=== PATIENT | female | born 1960 | race Caucasian/White ===

== ENCOUNTER → 2024-02-23 09:15 | Outpatient (REF) | payer OTHER, SELFPAY | LOC: RAD 09:15 | PROVIDERS: ATTENDING PHYSICIAN Specialist; FAMILY PHYSICIAN Emergency Medicine | DX: N20.0 Calculus of kidney (principal) | CPT/HCPCS: 74018 ==

== ENCOUNTER 2024-02-26 03:38 | Emergency (ER) | payer OTHER, SELFPAY ==
[2024-02-26 03:41] VITALS: BP 133/83
--- NOTE | 2024-02-26 04:04 | ED.GENMED ---
History of Present Illness
General
Chief Complaint: Flank Pain
Source: patient
Time Seen by Provider: 02/26/24 03:58
History of Present Illness
History of Present Illness:
63-year-old female presents to the emergency room complaining of right flank pain and nausea. Patient has a known 7 mm stone in the right ureter. Patient has a procedure scheduled in 2 days to address this. Dr. Gotti is her urologist. She was
told by Dr. oGtti to come to the emergency room if the pain became more severe. She has been taking only Tylenol for pain. She denies any fever. She is nauseous but has not vomited.
Past History
Past History
ED Past Medical History: Hypercholesterolemia, Psychiatric (depr) and Other (kidney stones)
ED Past Surgical History: Gynecological and Urological
Social History
Tobacco: Non-smoker
Alcohol: None
Drug: None
Personal:
Living: with family
Employment: Not employed
Family History
Family History: Other (Noncontributory)
Phy Exam
Physical Exam
Physical Exam:
General: Awake, Alert, Oriented X3. No acute distress.
Vitals: unremarkable
Head: Atraumatic
Eyes: Pupils equal, EOMI
Throat: Airway intact, no exudates
Neck: Trachea midline
Lungs: Clear and equal b/l
Heart: Regular rate, no murmurs
Abd: Soft, Nontender, No pulsatile mass
Back: Right CVA tenderness to percussion
Neuro: Nonfocal
Skin: Warm, dry, no rash
Extremities: pulses equal b/l, no edema
Course
Orders/Labs/Results
Orders:
Orders
02/26/24 04:02
0.9% Sodium Chloride 500 ml [Nss] 500 ml IV BOLUS
HYDROmorphone [Dilaudid] 0.5 mg IV NOW STA
Ondansetron Injectable [Zofran] 4 mg IV NOW STA
02/26/24 04:18
Basic Metabolic Panel Urgent
Complete Blood Count/With Diff Urgent
02/26/24 05:49
Urinalysis Reflex To Culture Urgent
Date Specimen was Collected: 02/26/24
Time Specimen was Collected: 05:47
Abnormal Lab Results
02/26/24
04:18
RBC 3.88 L 10^6/uL
(4.20-5.40)
Hgb 11.9 L g/dL
(12.0-16.0)
Hct 34.7 L %
(37.0-47.0)
Absolute Lymphs (auto) 1.1 L 10^3/uL
(1.2-3.4)
Absolute Monos (auto) 0.9 H 10^3/uL
(0.1-0.6)
Lymphocytes % 13.5 L %
(20.5-51.1)
Monocytes % 11.1 H %
(1.7-9.3)
Carbon Dioxide 21 L mmol/L
(22-30)
BUN 29 H mg/dl
(7-17)
Creatinine 1.1 H mg/dL
(0.6-1.0)
Glucose 111 H mg/dl
(70-99)
02/26/24 04:18
02/26/24 04:18
Vital Signs
Initial and Last Documented VS:
Initial Vital Signs
Temp Pulse Resp BP Pulse Ox
97.2 F 79 20 133/83 98
02/26/24 03:41 02/26/24 03:41 02/26/24 03:41 02/26/24 03:41 02/26/24 03:41
Last Documented Vital Signs
Temp Pulse Resp BP Pulse Ox
97.2 F 74 16 119/71 98
02/26/24 03:41 02/26/24 04:24 08/04/24 04:24 02/26/24 04:24 02/26/24 04:24
MDM/Problems Addressed
Differential Diagnosis Includes:
Renal colic, infected stone, renal failure
MDM/Problems Addressed:
Patient's labs show a creatinine of 1.1. She is afebrile. White count is normal. Patient feels much better after IV Dilaudid. Patient has not been using NSAIDs which I believe will be safe for her to use. Also will send a prescription for
oxycodone. There is no indication for emergent intervention. Patient can be discharged home and have her procedure on Tuesday.
*Pulse Oximetry
Patient hypoxic: no
*Critical Care Note
Total Time (30-74mins, 75-104mins- exclusive of procedures): Not Applicable
ED Attending Note
-
Portions of this chart may have been created with voice recognition software.� Occasional wrong word or��sound alike� substitutions may have occurred due to the inherent limitations of voice recognition software.
Discharge Plan
Departure
Patient Disposition: Home (Routine Discharge)
Date of Disposition: 02/26/24
Time of Disposition: 05:37
Patient with high blood pressure during this ER visit?: No
Condition: Good
Discharge Problem:
Kidney stone
Instructions: Kidney Stones (DC), Narcotic Pain Medication
Prescriptions:
New
oxycodone 5 mg tablet
5 mg PO Q6H PRN (Reason: Pain) Qty: 12 0RF
ondansetron 4 mg tablet,disintegrating
4 mg PO TID PRN (Reason: nausea and vomiting) Qty: 20 0RF
No Action
lamotrigine 100 MG tablet
100 mg PO DAILY
ezetimibe-simvastatin 1 TABLET tablet
40 tab PO QPM
ibandronate [Boniva] 150 MG tablet
150 mg PO MONTHLY
cholecalciferol (vitamin D3) 2,000 UNITS tablet
2,000 units PO HS
hrufxnl-ucqihbmqmmolt-yewnhlou 1 TABLET tablet
2 tab PO DAILYPRN PRN (Reason: tension headache)
escitalopram oxalate 10 MG tablet
10 mg PO DAILY
Azo Bladder Control Capsule
1 tab PO DAILY PRN (Reason: pain)
ibuprofen 400 MG tablet
400 mg PO Q6HPRN PRN (Reason: pain)
Referrals:
Carmita Mcmanus MD [Family Provider] -
Alexander Gotti MD [Active] -
Interventions
Interventions:
*Risk Screen - Suicide Last Done: 02/26/24 03:41
*General Assessment Last Done: 02/26/24 03:41
*Neglect/Abuse Screening Last Done: 02/26/24 03:41
ED- Fall Risk Assessment Last Done: 02/26/24 03:41
*ED COVID-19 Vaccine History Last Done: 02/26/24 03:41
*Nursing Disposition Last Done: 02/26/24 05:56
UD-Cefuto-Bevaianrye Assessment Last Done: 02/26/24 04:24
ED-Female Genitourinary Assessment Last Done: 02/26/24 04:24
Discharge Date and Time
Discharge Date/Time: 02/26/24 05:56
Print Language: HAITIAN
[2024-02-26] MEDS: NSS 500 IV (04:15)
[2024-02-26] MEDS: ZOFRAN 4 MG IV (04:15)
[2024-02-26] MEDS: DILAUDID 0.5 MG IV (04:16)
[2024-02-26 04:24] VITALS: BP 119/71
[2024-02-26 04:31] LABS: % Basophils 0.7 % (0-2); % Eosinophils 4.3 % (0-6); % Immature Granulocytes 0.4 % (0-0.5); % Lymphocytes 13.5 % (20.5-51.1); % Monocytes 11.1 % (1.7-9.3); Absolute Basophils 0.1 10^3/uL (0-0.2); Absolute Eosinophils 0.4 10^3/uL (0-0.7); Absolute Lymphocytes 1.1 10^3/uL (1.2-3.4); Absolute Monocytes 0.9 10^3/uL (0.1-0.6); Absolute Neutrophils 5.8 10^3/uL (1.4-6.5); Hematocrit 34.7 % (37.0-47.0); Hemoglobin 11.9 g/dL (12.0-16.0); Mean Corp Hgb Conc. 34.3 g/dL (33.0-37.0); Mean Corpuscular Hgb 30.7 pg (27.0-31.0); Mean Corpuscular Volume 89.4 fL (81.0-99.0); Mean Platelet Volume 8.9 fL (7.4-10.4); Nucleated Red Blood Cells % 0 %; Platelet Count 220 10^3/uL (130-400); Red Blood Cell Count 3.88 10^6/uL (4.20-5.40); Red Cell Dist. Width 14.3 % (11.5-14.5); White Blood Cell Count 8.3 10^3/uL (4.8-10.8)
[2024-02-26 04:48] LABS: Blood Urea Nitrogen 29 mg/dl (7-17); Calcium 9.6 mg/dl (8.4-10.2); Carbon Dioxide 21 mmol/L (22-30); Chloride 106 mmol/L (98-107); Glucose 111 mg/dl (70-99); Potassium 4.8 mmol/L (3.5-5.1); Sodium 137 mmol/L (135-145); eGFR 55.76
[2024-02-26 06:02] LABS: Urine Albumin Negative (Neg - Trace); Urine Bilirubin Negative (Negative); Urine Character Clear (Clear); Urine Color Straw; Urine Glucose Negative (Negative); Urine Ketone Negative (Negative); Urine Leukocyte 1+ (Negative); Urine Nitrite Negative (Negative); Urine Occult Blood 3+ (Negative); Urine Urobilinogen Negative (Neg - 1+)
[2024-02-26 06:19] LABS: Urine Bacteria Few (Negative); Urine White Cell 16-20 /HPF (0-5)
== END 2024-02-26 05:56 | disposition home or self-care (01) ==
LOC: EMR 03:38
PROVIDERS: EMERGENCY PHYSICIAN Emergency Medicine; FAMILY PHYSICIAN Emergency Medicine
DX: N20.2 Calculus of kidney with calculus of ureter (principal); E78.00 Pure hypercholesterolemia, unspecified; Z87.442 Personal history of urinary calculi
CPT/HCPCS: 99283; 96374; 96375; 80048; 81003; 81015; 85025; 87086

== ENCOUNTER 2024-02-28 06:26 | Day surgery (SDC) | payer OTHER, SELFPAY ==
[2024-02-24 14:13] VITALS: BMI 23.0
[2024-02-24 14:42] LABS: Hematocrit 41.1 % (37.0-47.0); Hemoglobin 13.5 g/dL (12.0-16.0); Mean Corp Hgb Conc. 32.8 g/dL (33.0-37.0); Mean Corpuscular Volume 94.5 fL (81.0-99.0); Mean Platelet Volume 9.5 fL (7.4-10.4); Platelet Count 251 10^3/uL (130-400); Red Blood Cell Count 4.35 10^6/uL (4.20-5.40); Red Cell Dist. Width 14.7 % (11.5-14.5)
[2024-02-24 15:09] LABS: Blood Urea Nitrogen 30 mg/dl (7-17); Calcium 10.4 mg/dl (8.4-10.2); Carbon Dioxide 26 mmol/L (22-30); Chloride 100 mmol/L (98-107); Estimated Creatinine Clearance 35 ml/min; Glucose 96 mg/dl (70-99); Potassium 5.6 mmol/L (3.5-5.1); Sodium 135 mmol/L (135-145); eGFR 45.63
--- NOTE | 2024-02-24 16:05 | PTCARENOTE ---
Abnormal Creatinine and Potassium 02/24/24. Pauly at Dr. Gotti's office aware.
[2024-02-28] VITALS (8 sets, daily range): BP systolic 127–150; BP diastolic 75–94; BMI 23.0
[2024-02-28] MEDS: NORMOSOL-R 1000 IV (08:56)
[2024-02-28] MEDS: Pyridium 200 MG PO (11:09)
[2024-03-02 05:30] LABS: Stone Analysis Mass 16 mg
== END 2024-02-28 12:00 | disposition home or self-care (01) ==
LOC: SDS 06:26
PROVIDERS: ATTENDING PHYSICIAN Specialist; FAMILY PHYSICIAN Emergency Medicine
DX: N20.1 Calculus of ureter (principal)
CPT/HCPCS: 52356; 36415; 74018; 76000; 80048; 82365; 85027; 93005; A4300; C1894; C2617; J1580

== ENCOUNTER 2024-03-04 18:59 | Emergency (ER) | payer OTHER, SELFPAY ==
[2024-03-04 19:01] VITALS: BP 117/74
--- NOTE | 2024-03-04 21:01 | ED.SKININJ ---
HPI-Injury
General
Chief Complaint: Bite
Source: patient
Exam Limitations: none
Time Seen by Provider: 03/04/24 20:49
Nursing documentation reviewed up to this point in time: agreed with
History of Present Illness-Injury
Is this injury a work related problem?: No
Is pt an associate of [facility]?: No
Initial Injury comments:
Accidentally bit by friends dog. Dog isUTD with rabies. Has puncture and abrasions to posterior left ankle. Injury occurred this afternoon.
Past History
Past History
ED Past Medical History: Hypercholesterolemia, Psychiatric (depr) and Other (kidney stones)
ED Past Surgical History: Gynecological and Urological
Social History
Tobacco: Non-smoker
Alcohol: None
Drug: None
Personal:
Living: with family
Employment: Not employed
Family History
Family History: Other (Noncontributory)
Review of Systems
Review of Systems
Allergies reviewed?: Yes
All Other Systems: ROS reviewed and negative except as documented in HPI and ROS
Constitutional: Reports no symptoms
Musculoskeletal: Reports no symptoms
Skin: Reports other (dog bite left posterior ankle)
Neurological: Reports no symptoms
Psychiatric: Reports no symptoms
Skin Exam
Bite
Left Posterior Ankle:
Type: animal
Skin has: puncture wounds
Surrounding area around bite has: no evidence of erythema and ecchymotic areas
Distal skin color and temperature: normal-warm & good color
Normal distal neurovascular exam: Yes
Phy Exam
General Physical Exam
General Presentation: well appearing and no apparent distress
General age: appears stated age
General Skin: warm and dry
General Habitus: normal
Musculoskeletal Exam
Musculoskeletal Exam: full ROM, neuro vasc intact and other (achilles intact.)
Skin Exam
Skin Exam: normal color, warm/dry and no rash
Psychiatric Exam
Psychiatric Exam: normal mood/affect
Course
Orders/Labs/Results
Orders:
Orders
03/04/24 20:56
Tetanus/Diphth/Acelpertussis [Adacel] 0.5 ml IM .ONCE ONE
03/04/24 20:57
Amoxicillin 875 mg/Clav 125 mg [Augmentin 875 mg/125 mg] 1 tablet PO NOW STA
Vital Signs
Initial and Last Documented VS:
Initial Vital Signs
Temp Pulse Resp BP Pulse Ox
98.1 F 88 18 117/74 96
03/04/24 19:01 03/04/24 19:01 03/04/24 19:01 03/04/24 19:01 03/04/24 19:01
Last Documented Vital Signs
Temp Pulse Resp BP Pulse Ox
98.1 F 88 18 117/74 96
03/04/24 19:01 03/04/24 19:01 03/04/24 19:01 03/04/24 19:01 03/04/24 19:01
*Critical Care Note
Total Time (30-74mins, 75-104mins- exclusive of procedures): Not Applicable
Update Note
Update Note:
Patient reports rash with PCN while . Has had Augmentin since, no rash
ED Attending Note
-
Portions of this chart may have been created with voice recognition software.� Occasional wrong word or��sound alike� substitutions may have occurred due to the inherent limitations of voice recognition software.
Discharge Plan
Departure
Patient Disposition: Home (Routine Discharge)
Date of Disposition: 03/04/24
Time of Disposition: 20:58
Patient with high blood pressure during this ER visit?: No
Condition: Good
Covid-19: Not Applicable
Discharge Problem:
Dog bite of left ankle
Instructions: Animal Bites (DC), Wound Care (DC)
Prescriptions:
New
amoxicillin-pot clavulanate 875-125 mg tablet
1 tab PO BID Qty: 10 0RF
No Action
lamotrigine 100 MG tablet
100 mg PO DAILY
ezetimibe-simvastatin 1 TABLET tablet
40 tab PO QPM
ibandronate [Boniva] 150 MG tablet
150 mg PO MONTHLY
cholecalciferol (vitamin D3) 2,000 UNITS tablet
2,000 units PO HS
zxqpqmc-gjcmmmxujtbkw-ydrojzfx 1 TABLET tablet
2 tab PO DAILYPRN PRN (Reason: tension headache)
escitalopram oxalate 10 MG tablet
10 mg PO DAILY
Azo Bladder Control Capsule
1 tab PO DAILY PRN (Reason: pain)
ibuprofen 400 MG tablet
400 mg PO Q6HPRN PRN (Reason: pain)
tamsulosin [Flomax] 0.4 mg Capsule
0.4 mg PO DAILY
oxycodone 5 mg tablet
5 mg PO Q6H PRN (Reason: Pain) Qty: 12 0RF
ondansetron 4 mg tablet,disintegrating
4 mg PO TID PRN (Reason: nausea and vomiting) Qty: 20 0RF
Activity Restrictions/Additional Instructions:
Follow up with your family doctor in 2 days for a wound check. Return to the emergency department immediately for fever/chills, increasing pain/redness/swelling to your leg, or for any further concerns.
Interventions
Interventions:
*Risk Screen - Suicide Last Done: 03/04/24 19:01
*General Assessment Last Done: 03/04/24 19:01
*Neglect/Abuse Screening Last Done: 03/04/24 19:01
ED- Fall Risk Assessment Last Done: 03/04/24 21:12
*ED COVID-19 Vaccine History Last Done: 03/04/24 20:55
*Nursing Disposition Last Done: 03/04/24 21:13
ED-Skin Assessment Last Done: 03/04/24 21:12
Discharge Date and Time
Discharge Date/Time: 03/04/24 21:14
Print Language: ARABIC
[2024-03-04] MEDS: AUGMENTIN 875 MG/125 MG 1 TABLET PO (21:05)
[2024-03-04] MEDS: ADACEL 0.5 ML IM (21:06)
== END 2024-03-04 21:14 | disposition home or self-care (01) ==
LOC: EMR 18:59
PROVIDERS: EMERGENCY PHYSICIAN Emergency Medicine; FAMILY PHYSICIAN Emergency Medicine
DX: S91.052A Open bite, left ankle, initial encounter (principal); S90.512A Abrasion, left ankle, initial encounter; W54.0XXA Bitten by dog, initial encounter; Z23 Encounter for immunization; E78.00 Pure hypercholesterolemia, unspecified; F41.9 Anxiety disorder, unspecified; F32.A Depression, unspecified; K21.9 Gastro-esophageal reflux disease without esophagitis; M19.90 Unspecified osteoarthritis, unspecified site; Z87.442 Personal history of urinary calculi; Z87.01 Personal history of pneumonia (recurrent); Z86.16 Personal history of COVID-19; Z85.828 Personal history of other malignant neoplasm of skin; Z88.5 Allergy status to narcotic agent; Z88.0 Allergy status to penicillin
CPT/HCPCS: 99283; 90471; 90715

== ENCOUNTER → 2024-04-09 12:11 | Outpatient (REF) | payer OTHER, SELFPAY | LOC: WDC 12:11 | PROVIDERS: ATTENDING PHYSICIAN Obstetrics & Gynecology; FAMILY PHYSICIAN Emergency Medicine | DX: Z12.31 Encounter for screening mammogram for malignant neoplasm of breast (principal) | CPT/HCPCS: 77063; 77067 ==

== ENCOUNTER 2024-05-11 22:07 | Emergency (ER) | payer OTHER, SELFPAY ==
[2024-05-11 22:15] VITALS: BP 135/87
[2024-05-11 22:35] LABS: % Basophils 0.7 % (0-2); % Eosinophils 2.6 % (0-6); % Immature Granulocytes 0.2 % (0-0.5); % Lymphocytes 14.9 % (20.5-51.1); % Monocytes 8.9 % (1.7-9.3); % Neutrophils 72.7 % (42.2-75.2); Absolute Eosinophils 0.2 10^3/uL (0-0.7); Absolute Lymphocytes 0.9 10^3/uL (1.2-3.4); Absolute Monocytes 0.5 10^3/uL (0.1-0.6); Absolute Neutrophils 4.4 10^3/uL (1.4-6.5); Hematocrit 37.8 % (37.0-47.0); Hemoglobin 12.9 g/dL (12.0-16.0); Mean Corp Hgb Conc. 34.1 g/dL (33.0-37.0); Mean Corpuscular Hgb 30.5 pg (27.0-31.0); Mean Corpuscular Volume 89.4 fL (81.0-99.0); Mean Platelet Volume 9.3 fL (7.4-10.4); Nucleated Red Blood Cells % 0 %; Platelet Count 193 10^3/uL (130-400); Red Blood Cell Count 4.23 10^6/uL (4.20-5.40); Red Cell Dist. Width 12.5 % (11.5-14.5)
[2024-05-11 22:49] LABS: ALT (SGPT) 40 U/L (0-35); AST (SGOT) 120 U/L (14-36); Albumin 4.6 g/dl (3.5-5.0); Alkaline Phosphatase 98 U/L (38-126); Blood Urea Nitrogen 16 mg/dl (7-17); Carbon Dioxide 28 mmol/L (22-30); Chloride 102 mmol/L (98-107); Glucose 109 mg/dl (70-99); Lipase 65 U/L (23-300); Sodium 140 mmol/L (135-145); Total Bilirubin 0.2 mg/dl (0.2-1.3); eGFR > 60.00
[2024-05-11 23:00] LABS: Troponin I < 0.012 ng/ml
[2024-05-11 23:42] VITALS: BMI 20.4
[2024-05-11 23:46] VITALS: BP 147/84
--- NOTE | 2024-05-12 01:17 | ED.GENMED ---
History of Present Illness
General
Chief Complaint: Cardiac Symptoms
Source: patient and spouse
Exam Limitations: none
Time Seen by Provider: 05/12/24 00:27
History of Present Illness
History of Present Illness:
63-year-old female with a history of hyperlipidemia presents just not feeling well. States she has had some constipation and just not feeling well over the last week. Today since around 3 has developed pain in bilateral shoulders down her elbows.
No chest pain. No upper back pain. States she has had little bit of tightness in her lower back. Admits that she was just concerned this could be a heart related symptom. Patient denies fevers. No nausea. No vomiting. No real abdominal pain.
No melena. No hematochezia. No fevers.
Past History
Past History
ED Past Medical History: Hypercholesterolemia, Psychiatric (depr) and Other (kidney stones)
ED Past Surgical History: Gynecological and Urological
Social History
Tobacco: Non-smoker
Alcohol: None
Drug: None
Personal:
Living: with family
Employment: Not employed
Family History
Family History: Other (Noncontributory)
Phy Exam
Physical Exam
Physical Exam:
CONSTITUTIONAL Patient alert and oriented to person, place and time. Well-appearing. Vital signs reviewed.
HEAD atraumatic, normocephalic.
EYES eyelids normal to inspection, Extraocular muscles intact, Conjunctiva normal, Sclera normal.
NECK normal range of motion, Trachea midline, no jugular venous distention.
RESPIRATORY CHEST No respiratory distress noted, Chest expansion equal, Bilateral breath sounds clear.
CARDIOVASCULAR regular rate and rhythm, Heart sounds normal.
ABDOMEN abdomen nontender, Bowel sounds normal. No distention.
BACK normal inspection, no obvious deformities, no obvious trapezius tenderness
UPPER EXTREMITY range of motion normal, Motor strength normal, no cyanosis, no edema.
LOWER EXTREMITY range of motion normal, Motor strength normal, no cyanosis, no edema.
NEURO Speech normal, No focal motor deficits, Procious coma scale 15, Memory normal, Cranial Nerves intact to screening exam.
SKIN skin warm, dry, and normal in color.
Course
Orders/Labs/Results
Orders:
Orders
05/11/24 22:08
EKG [Electrocardiogram (*1)] Urgent
Reason for Study: Fatigue / Weakness
05/11/24 22:09
EKG- Treatment ONCE
05/11/24 22:27
CBC/With Diff [Complete Blood Count/With Diff] Urgent
CMP [Comprehensive Metabolic Panel] Urgent
Lipase Urgent
Troponin I Urgent
05/12/24 00:37
Abdomen Xray - 1 View [CR Abdomen - 1 View] Urgent
Comment:
Reason For Exam: abd pain
CR Chest - 2 Views Urgent
Comment:
Reason For Exam: cp
Abnormal Lab Results
05/11/24
22:27
Absolute Lymphs (auto) 0.9 L 10^3/uL
(1.2-3.4)
Lymphocytes % 14.9 L %
(20.5-51.1)
Glucose 109 H mg/dl
(70-99)
AST 120 H U/L
(14-36)
ALT 40 H U/L
(0-35)
05/11/24 22:27
05/11/24 22:27
Vital Signs
Initial and Last Documented VS:
Initial Vital Signs
Temp Pulse Resp BP Pulse Ox
99.2 F 79 15 135/87 99
05/11/24 22:15 05/11/24 22:15 05/11/24 22:15 05/11/24 22:15 05/11/24 22:15
Last Documented Vital Signs
Temp Pulse Resp BP Pulse Ox
99.2 F 77 16 147/84 98
05/11/24 22:15 05/11/24 23:46 05/11/24 23:46 05/11/24 23:46 05/11/24 23:46
MDM/Problems Addressed
MDM/Problems Addressed:
Shoulder pain, constipation
*Radiology
Radiology exam reviewed: all reviewed NAD by ED Provider
*Pulse Oximetry
Patient hypoxic: no
*EKG
Interpreted by ED Provider?: Yes
Interpretation: normal
Rate: normal
[place]: normal axis
QRS Pattern: normal QRS
Ischemia: no ischemia
*Lay Out Drafter Interpretation
Rate: normal
Interpretation: normal
Rhythm: sinus
*Critical Care Note
Total Time (30-74mins, 75-104mins- exclusive of procedures): Not Applicable
Data Reviewed
Source: patient and spouse
Further Testing Considered But Not Given:
Consider CT but mediastinum narrow. No clinical concern for aortic dissection
Patient Management
Escalation/DeEscalation of care consider admission/obs:
Troponin negative and EKG normal despite shoulder pain since 3 PM. Patient otherwise appears well. Abdomen is soft and there. Okay for discharge and outpatient follow-up
ED Attending Note
-
Portions of this chart may have been created with voice recognition software.� Occasional wrong word or��sound alike� substitutions may have occurred due to the inherent limitations of voice recognition software.
Discharge Plan
Departure
Patient Disposition: Home (Routine Discharge)
Date of Disposition: 05/12/24
Time of Disposition: 01:20
Patient with high blood pressure during this ER visit?: Yes
Discharge Problem:
Bilateral shoulder pain, Constipation
Prescriptions:
No Action
lamotrigine 100 MG tablet
100 mg PO DAILY
ezetimibe-simvastatin 1 TABLET tablet
40 tab PO QPM
ibandronate [Boniva] 150 MG tablet
150 mg PO MONTHLY
cholecalciferol (vitamin D3) 2,000 UNITS tablet
2,000 units PO HS
otnvzea-xtpktudmppxgs-mgccseyu 1 TABLET tablet
2 tab PO DAILYPRN PRN (Reason: tension headache)
escitalopram oxalate 10 MG tablet
10 mg PO DAILY
ibuprofen 400 MG tablet
400 mg PO Q6HPRN PRN (Reason: pain)
Referrals:
Carmita Mcmanus MD [Family Provider] -
Activity Restrictions/Additional Instructions:
Please see your doctor next 3 days for follow-up and reevaluation peer return immediately for chest pain, shortness of breath, weakness of any kind, worsening symptoms, fevers or any other concerns.
Interventions
Interventions:
*Risk Screen - Suicide Last Done: 05/11/24 22:15
*General Assessment Last Done: 05/11/24 23:42
*Neglect/Abuse Screening Last Done: 05/11/24 23:42
*ED COVID-19 Vaccine History Last Done: 05/11/24 23:42
ED- Pulmonary Assessment Last Done: 05/11/24 23:42
ED- Cardiac Assessment Last Done: 05/11/24 23:42
Discharge Date and Time
Print Language: FRISIAN
[2024-05-12 01:48] VITALS: BP 135/77
== END 2024-05-12 01:49 | disposition home or self-care (01) ==
LOC: EMR 22:07
PROVIDERS: EMERGENCY PHYSICIAN Emergency Medicine; FAMILY PHYSICIAN Emergency Medicine
DX: M25.512 Pain in left shoulder (principal); M25.511 Pain in right shoulder; K59.00 Constipation, unspecified; E78.00 Pure hypercholesterolemia, unspecified; Z87.442 Personal history of urinary calculi
CPT/HCPCS: 99283; 71046; 74018; 80053; 83690; 84484; 85025; 93005

== ENCOUNTER 2024-05-23 17:43 | Inpatient (IN) | payer OTHER, SELFPAY ==
[2024-05-23] VITALS (8 sets, daily range): BP systolic 131–152; BP diastolic 72–88; BMI 22.3; BMI 22.7
--- NOTE | 2024-05-23 15:07 | ED.GENMED ---
History of Present Illness
General
Chief Complaint: Fatigue
Source: patient
Exam Limitations: none
Time Seen by Provider: 05/23/24 14:39
Nursing documentation reviewed up to this point in time: agreed with
History of Present Illness
History of Present Illness:
Patient currently taking simvastatin/Zetia medication for high cholesterol, presents to ED secondary to continual generalized body ache, joint pain, and back pain, along with fatigue and decreased appetite. Denies fever or chills. Denies recent
change in medications or diet. Denies recent illness. Denies recent travel. Patient states that when her symptoms started 3 weeks ago, she first experienced lower back pain, which progressed to aforementioned symptoms. In addition, patient has
noted itchy rash in her upper back recently as well. Denies previous history of similar symptoms. Patient has been evaluated by her primary care physician and blood work has been ordered, with concern for potential rhabdomyolysis.
Past History
Past History
ED Past Medical History: Hypercholesterolemia, Psychiatric (depr) and Other (kidney stones)
ED Past Surgical History: Gynecological and Urological
Social History
Tobacco: Non-smoker
Alcohol: None
Drug: None
Personal:
Living: with family
Employment: Not employed
Family History
Family History: Other (Noncontributory)
Review of Systems
Review of Systems
Allergies reviewed?: Yes
All Other Systems: ROS reviewed and negative except as documented in HPI and ROS
Constitutional: Reports fatigue; Denies fever
EENT: Reports no symptoms
Respiratory: Reports no symptoms
Cardiac: Reports no symptoms
ABD/GI: Reports no symptoms
: Reports no symptoms
Musculoskeletal: Reports joint pain, muscle pain and back pain
Skin: Reports no symptoms
Neurological: Reports weakness; Denies dizzy or headache
Phy Exam
Physical Exam
Physical Exam:
Physical Exam
General: mild distress, not acutely ill. afebrile. fatigued appearing.
Head: nc/at. eomi
Neck: supple. no meningeal signs.
Heart: s1/s2 regular rate and rhythm, no murmur. equal radial pulses.
Lungs: no acute respiratory distress. clear bilaterally
Abdomen: normal bowel sounds. not tender.
Neuro: alert and oriented. no focal neurological deficits
Skin: macular rash noted over left upper back, nontender.
Psychiatric: well kept. interactive and cooperative
Extremities: no edema. no calf tenderness.
Course
Orders/Labs/Results
Orders:
Orders
05/23/24 Lunch
Regular
At Your Request: Full Participation
05/23/24 14:55
C-Reactive Protein Urgent
Comment: ADD ON
CPK [Creatine Phosphokinase] Urgent
Complete Blood Count/With Diff Urgent
Comprehensive Metabolic Panel Urgent
Erythrocyte Sed Rate Urgent
Comment: ADD ON
Magnesium Urgent
TSH Urgent
05/23/24 15:01
COVID-19 Antigen Urgent
Source: Nasal Swab
Influenza A+B Rapid Molecular Urgent
CORY Source: Nasal Swab
Specimen Description:
05/23/24 15:08
Add On- LAB Urgent
Tests Added?: ESR, CRP
05/23/24 15:39
0.9% Sodium Chloride 1000 ml [Nss] 1,000 ml IV BOLUS
05/23/24 16:36
0.9% Sodium Chloride 500 ml [Nss] 500 ml IV BOLUS
05/23/24 16:45
0.9% Sodium Chloride 1000 ml [Nss] 1,000 ml IV 150 mls/hr
05/23/24 16:51
Add On- LAB Routine
Tests Added?: indirect fluorescent antibody test with reflex
MICHELLE, IgG Reflex to HEp-2 [S] Routine
05/23/24 16:56
Add On- LAB Routine
Tests Added?: HMGcoA reductase antibody
05/23/24 16:57
Add On- LAB Routine
Tests Added?: anti-Ro/SSA, anti-La/SSB, anti-Sm, anti-ribonucleoprotein antibod
05/23/24 17:10
Admit/Transfer Patient As Directed
Co-Sign Provider:
Level of Care: Inpatient admission
Assign to:: Telemetry
Physician / Group: Priti Jurado
Diagnosis: rhabdomyolysis
Reason for Telemetry: Chest Pain syndromes
Date to Stop Telemetry: 05/25/24
Time to Stop Telemetry: 11:00
Reason for Hospitalization: rhabdomyolysis
Expected length of stay greater than two midnights?: Yes
ELOS- Estimated Length of Stay in days: 3
I certify the patient meets the requirements for IP care: Yes
PRN Pain Medication Management As Directed
May give lesser potent ordered pain med per pt: Yes
preference::
Protocol:: Medication orders for pain may be administered in a
manner that supports deferring to patient preference
when the pt is:
- Requesting an ordered lesser potent pain medication.
Least to most potent pain medications are defined
as: acetaminophen < NSAID < tramadol < opioids
(morphine, oxycodone, hydromorphone).
- Requesting a lesser dose of the same medication IF
ORDERED.
- Requesting a less intrusive route of administration
if both routes are prescribed by the provider (PO <
IV).
05/23/24 17:13
Code Status As Directed
Resuscitation Status: Full Code
05/23/24 17:36
Acetaminophen [Tylenol] 650 mg PO Q4HPRN PRN
05/23/24 17:37
UA Reflex to Culture [Urinalysis Reflex To Culture] Routine
Date Specimen was Collected: 05/23/24
Time Specimen was Collected: 17:28
05/23/24 18:51
Bisacodyl [Dulcolax] 10 mg RECTAL [id number] PRN
Docusate W/Senna [Senokot-S] 1 tablet PO BIDPRN PRN
Enoxaparin Sodium [Lovenox] 40 mg SC QPM
Polyethylene Glycol Powder [Miralax] 17 grams PO DAILYPRN PRN
05/23/24 18:51
Activity As Directed
Activity Level: As Tolerated
Nursing to Place Non Medication Order As Directed
Physician Order: please update overnight provider with urine output around 11PM to ensure fluids are at
appropriate rate (goal output about 200cc/hr)
Vital Signs As Directed
Frequency: Per unit guidelines
OT Consult [Ot Eval And Treat] Routine
Physical Therapy Consult [Pt Eval And Treat] Routine
Activity Level: As Tolerated
DX Deep Vein Thrombosis Video Routine
05/23/24 20:00
Betamethasone Dipropionate [Diprosone Ointment 0.05%] See Dose Instructions TOPICAL BID
05/24/24 06:00
Complete Blood Count/With Diff IN AM
Comprehensive Metabolic Panel IN AM
Magnesium IN AM
SSA 52 and 60 (Ro)(YARIEL) Ab,IgG [S] Routine
SSB (La)(YARIEL) Ab, IgG [S] Routine
Canas/POTATO SORTER (YARIEL), IgG [S] Routine
Smooth Muscle Antibody, IgG [S] Routine
Total CK [Creatine Phosphokinase] IN AM
05/24/24 08:00
Cholecalciferol (Vitamin D3) [VITAMIN D3 (cholecalciferol)] 50 mcg PO DAILY
Doxycycline [Vibramycin] 100 mg PO DAILY
Escitalopram Oxalate [Lexapro] 10 mg PO DAILY
Lamotrigine [Lamictal] 100 mg PO DAILY
05/25/24 06:00
Total CK [Creatine Phosphokinase] IN AM
05/25/24 11:00
DC Protocol for Telemetry ONCE
05/26/24 06:00
Total CK [Creatine Phosphokinase] IN AM
05/27/24 06:00
Total CK [Creatine Phosphokinase] IN AM
Abnormal Lab Results
05/23/24
14:55
Absolute Neuts (auto) 6.7 H 10^3/uL
(1.4-6.5)
Absolute Lymphs (auto) 0.5 L 10^3/uL
(1.2-3.4)
Absolute Monos (auto) 0.7 H 10^3/uL
(0.1-0.6)
Neutrophils % 83.4 H %
(42.2-75.2)
Lymphocytes % 6.6 L %
(20.5-51.1)
BUN 18 H mg/dl
(7-17)
Glucose 137 H mg/dl
(70-99)
AST 449 H U/L
(14-36)
ALT 112 H U/L
(0-35)
Creatine Kinase 36637 H U/L
(30-135)
C-Reactive Protein 45.60 H mg/L
(0.0-10.00)
Total Protein 5.8 L g/dl
(6.3-8.2)
05/23/24 14:55
05/23/24 14:55
Vital Signs
Initial and Last Documented VS:
Initial Vital Signs
Temp Pulse Resp BP Pulse Ox
98.2 F 103 16 146/88 96
05/23/24 13:49 05/23/24 13:49 05/23/24 13:49 05/23/24 13:49 05/23/24 13:49
Last Documented Vital Signs
Temp Pulse Resp BP Pulse Ox
98.7 F 94 16 142/81 94
05/23/24 19:35 05/23/24 19:35 05/23/24 19:35 05/23/24 19:35 05/23/24 19:35
MDM/Problems Addressed
MDM/Problems Addressed:
History and exam consistent with rhabdomyolysis, likely secondary to use of statin medication. In light of patient's progressing symptoms, patient will be admitted for further evaluation treatment, including continue hydration and repeat blood work.
*Critical Care Note
Total Time (30-74mins, 75-104mins- exclusive of procedures): Not Applicable
ED Attending Note
-
Portions of this chart may have been created with voice recognition software.� Occasional wrong word or��sound alike� substitutions may have occurred due to the inherent limitations of voice recognition software.
Discharge Plan
Departure
Patient Disposition: Admit
Date of Disposition: 05/23/24
Time of Disposition: 15:52
Presentation/result/management discussed w/ accepting MD/DO: Hospitalist
Discharge Problem:
Rhabdomyolysis
Interventions
Interventions:
*Risk Screen - Suicide Last Done: 05/23/24 13:49
*General Assessment Last Done: 05/23/24 13:49
*Neglect/Abuse Screening Last Done: 05/23/24 13:49
ED- Fall Risk Assessment Last Done: 05/23/24 14:25
*ED COVID-19 Vaccine History Last Done: 05/23/24 14:25
*Nursing Disposition Last Done: 05/23/24 18:15
Discharge Date and Time
Discharge Date/Time: 05/23/24 18:15
[2024-05-23 15:13] LABS: % Basophils 0.3 % (0-2); % Eosinophils 0.8 % (0-6); % Immature Granulocytes 0.5 % (0-0.5); % Lymphocytes 6.6 % (20.5-51.1); % Monocytes 8.4 % (1.7-9.3); % Neutrophils 83.4 % (42.2-75.2); Absolute Eosinophils 0.1 10^3/uL (0-0.7); Absolute Lymphocytes 0.5 10^3/uL (1.2-3.4); Absolute Monocytes 0.7 10^3/uL (0.1-0.6); Absolute Neutrophils 6.7 10^3/uL (1.4-6.5); Hemoglobin 12.6 g/dL (12.0-16.0); Mean Corp Hgb Conc. 33.2 g/dL (33.0-37.0); Mean Corpuscular Hgb 29.9 pg (27.0-31.0); Mean Corpuscular Volume 90.3 fL (81.0-99.0); Mean Platelet Volume 9.4 fL (7.4-10.4); Nucleated Red Blood Cells % 0 %; Platelet Count 192 10^3/uL (130-400); Red Blood Cell Count 4.21 10^6/uL (4.20-5.40); Red Cell Dist. Width 13.2 % (11.5-14.5)
[2024-05-23 15:28] LABS: ALT (SGPT) 112 U/L (0-35); AST (SGOT) 449 U/L (14-36); Albumin 3.5 g/dl (3.5-5.0); Alkaline Phosphatase 95 U/L (38-126); Blood Urea Nitrogen 18 mg/dl (7-17); Calcium 9.2 mg/dl (8.4-10.2); Carbon Dioxide 27 mmol/L (22-30); Chloride 101 mmol/L (98-107); Estimated Creatinine Clearance 77 ml/min; Glucose 137 mg/dl (70-99); Magnesium 1.8 mg/dl (1.6-2.3); Potassium 4.9 mmol/L (3.5-5.1); Sodium 137 mmol/L (135-145); Total Bilirubin 0.3 mg/dl (0.2-1.3); Total Protein 5.8 g/dl (6.3-8.2); eGFR > 60.00
[2024-05-23 15:37] LABS: Creatine Phosphokinase 15235 U/L (30-135)
[2024-05-23 15:49] LABS: COVID-19 Antigen Negative (Negative)
[2024-05-23] MEDS: NSS 1000 IV ×2 (15:50→20:17)
[2024-05-23 15:55] LABS: TSH 0.93 uIU/ml (0.47-4.68)
--- NOTE | 2024-05-23 16:03 | HPS.HSE ---
Addendum entered and electronically signed by Priti Jurado MD 05/23/24 17:42:
no mid spine pain on exam
she can lift b/l legs off bed 3-4 seconds then drops 2/2 pain in proximal thigh
5/5 strength plantar flexion and dorsiflexion b/l feet
4+/5 strength elbow flexion and extension
4/5 strength b/l shoulder extension
Original Note:
Family Physician
-
Family Physician: Carmita Mcmanus MD
Chief Complaint
-
generalized body aches and fatigue
History of Present Illness
MS. Yoly Hidalgo is a 63 yo woman with hx HLD on Simvastatin/Zetia, depression, nephrolithiasis who presents to the ER with 3 weeks generalized body aches and pains.
She states symptoms started 3 weeks ago with lower back pain - described as a band stretching along lower back. No mid-spine pain. She then had bilateral hip pain and weakness with pain extending down to bilateral feet and heels. One week ago she
came here with bilateral shoulder pain/weakness. ACS ruled out with negative Troponin. Since then she has had progressive pain and weakness. She feels she cannot walk without assistance.
She also has a rash across upper part of her back. She has a history of eczema diagnosed by her grounds and nursery specialist that has occurred in different parts of body, not present upper back prior. She has been applying steroid cream and it has been
improving.
No fevers/chills. + mild headache. No nausea/vomiting. No chest pain. No abdominal pain. No shortness of breath. normal BM. No dysuria.
Medical History
Past Medical History
Past Medical History: Reports Other (HLD on Simvastatin/Zetia, depression, nephrolithiasis)
Past Surgical History: Reports Gynocological and Urological
Social History
Tobacco: Non-smoker
Alcohol: None
Family History
Family History: Not pertinent
Allergies / Home Medications
Allergies reflects when Allergies were last updated in [employer].
Home Medications with original date entered in [employer]
Allergy/Medication List:
Allergies
Allergy/AdvReac Type Severity Reaction Status Date / Time
meperidine HCl [From Demerol] Allergy extreme Verified 05/23/24 13:52
confusion/hallucination
Penicillins Allergy Rash Verified 05/23/24 13:52
Home Medications
lamotrigine 100 mg tablet 100 mg PO DAILY anxiety 10/22/19
escitalopram oxalate 10 mg tablet 10 mg PO DAILY 10/06/21
cholecalciferol (vitamin D3) 50 mcg (2,000 unit) tablet 50 mcg PO DAILY 05/23/24
doxycycline hyclate 100 mg capsule 100 mg PO DAILY 05/23/24
ezetimibe 10 mg-simvastatin 40 mg tablet 1 tab PO QPM 05/23/24
Review of Systems
-
History Source: Patient
A 12 point ROS was completed and negative except as noted: Yes
Physical Exam
Vital Signs
Vital Signs
Temp Pulse Resp BP Pulse Ox
99.0 F 96 18 131/81 95
05/23/24 15:52 05/23/24 15:57 05/23/24 15:57 05/23/24 15:57 05/23/24 15:57
Physical Exam
General: No Apparent Distress and Conversant
HEENT: PERRLA
Respiratory: Clear; No Wheezes
Cardiac: S1/S2 and Regular Rhythm
GI: Soft and Non Tender
Musculoskeletal: No Edema
Skin: Rash (upper back maculo papular rash with confluent area mid back; areas of possible excoriation )
Neuro: AO x 3
Psych: Calm
Laboratory Results
-
05/23/24 14:55
05/23/24 14:55
Laboratory Results
Total Bilirubin 0.3 mg/dl (0.2-1.3) 05/23/24 14:55
AST 449 U/L (14-36) H 05/23/24 14:55
ALT 112 U/L (0-35) H 05/23/24 14:55
Alkaline Phosphatase 95 U/L (38-126) 05/23/24 14:55
Data Reviewed
-
Diagnostic Radiology: Report Reviewed by me
Lab Data: Labs Reviewed by me
Impression/Plan
-
MS. Yoly Hidalgo is a 63 yo woman with hx HLD on Simvastatin/Zetia, depression, nephrolithiasis who presents to the ER with 3 weeks generalized body aches and pains.
Triage VS: T 98.2, P 103, RR 16, BP 146/88, SpO2 96%
LABS: WBC 8, Hg 12.6, PLT 192, Na 137, K+ 4.9, Cl 101, BUN 18, Cr 0.6, Glucose 137, T. Bili 0.3, AST 449, ALT 112, [place] [address]
covid negative
Triage VS: T 98.2, P 103, RR 16, BP 146/88, SpO2 96%
LABS: WBC 8, Hg 12.6, PLT 192, Na 137, K+ 4.9, BUN 18, Cr 0.6, Glucose 137, Ca 9.2, Mag 1.8, T. Bili 0.3, AST 449, [place] [address], TSH 0.93
MAR: 1L IVF
Rhabdomyolysis 2/2 statin use (although on it x 5 years) versus myositis/dermatomyositis as there is an association with rash.
-admit to tele
-1L IVF in ER, give additional 500cc now and continue NS @ 150cc/hr
-trend CK and liver enzymes
-STOP STATIN and Ezetimibe
-case discussed with Dr. Heck (Rheumatology) who states that if symptoms aren't improving by tomorrow with fluids, she recommends transfer to [place] for more expedited work-up of myositis. In meantime she recommended sending MICHELLE, IFA with reflex and
an autoimmune myositis panel including HMGcoA reductase antibody - discussed with lab
-case also discussed with Dr. Lee (Neurology) who agrees with above; EMG not urgent
-PT/OT
-may need muscle biopsy if no improvement (would transfer to [place] per rheum)
-topical steroids for rash which is more likely related to known diagnosis of eczema
Depression
-CONSUMER LENDER Lamotrigine and Lexapro
Hx avascular necrosis
-CONSUMER LENDER Doxy
DVT PPx lovenox subQ
FULL CODE
76 minutes spent on patient care
[2024-05-23 16:33] LABS: Erythrocyte Sed Rate 13 mm/hour (0-20)
[2024-05-23] MEDS: NSS 500 IV (17:33)
[2024-05-23] MEDS: TYLENOL 650 MG PO ×2 (17:55→23:49)
[2024-05-23 17:58] LABS: Urine Albumin Negative (Neg - Trace); Urine Bilirubin Negative (Negative); Urine Character Clear (Clear); Urine Color Yellow; Urine Glucose Negative (Negative); Urine Ketone Negative (Negative); Urine Leukocyte Negative (Negative); Urine Nitrite Negative (Negative); Urine Occult Blood Negative (Negative); Urine Specific Gravity 1.025 (<1.030); Urine Urobilinogen Negative (Neg - 1+)
--- NOTE | 2024-05-23 20:00 | PTCARENOTE ---
Pt transferred from ED. Pt assisted into bed. Pt AAOX3, VS, IVF started. Pt oriented to unit, call baker within reach, bed in lowest position. Will continue with current plan.
[2024-05-23] MEDS: LOVENOX 40 MG SC (20:17)
[2024-05-23] MEDS: DIPROSONE 0.05% 1 APPLIC TOPICAL (20:17)
[2024-05-23] MEDS: NSS IV (23:49)
[2024-05-24] VITALS (8 sets, daily range): BP systolic 133–169; BP diastolic 69–89; PULSE 87; O2SAT 95
--- NOTE | 2024-05-24 | PTCARENOTE ---
Pt put out 500cc of urine. IVF running at 150mls/hr. Pt urinating with no problems. Nancy Rey notified. No new orders obtained, IVF remain at the same rate. Will continue with current plan.
[2024-05-24] MEDS: NSS 1000 IV ×3 (03:09→17:09)
[2024-05-24 08:09] LABS: % Basophils 0.3 % (0-2); % Eosinophils 1.4 % (0-6); % Immature Granulocytes 0.5 % (0-0.5); % Lymphocytes 13.7 % (20.5-51.1); % Monocytes 9.5 % (1.7-9.3); % Neutrophils 74.6 % (42.2-75.2); Absolute Eosinophils 0.1 10^3/uL (0-0.7); Absolute Lymphocytes 0.8 10^3/uL (1.2-3.4); Absolute Monocytes 0.6 10^3/uL (0.1-0.6); Absolute Neutrophils 4.3 10^3/uL (1.4-6.5); Hematocrit 35.4 % (37.0-47.0); Hemoglobin 11.7 g/dL (12.0-16.0); Mean Corp Hgb Conc. 33.1 g/dL (33.0-37.0); Mean Corpuscular Hgb 31.5 pg (27.0-31.0); Mean Corpuscular Volume 95.2 fL (81.0-99.0); Nucleated Red Blood Cells % 0 %; Platelet Count 167 10^3/uL (130-400); Red Blood Cell Count 3.72 10^6/uL (4.20-5.40); Red Cell Dist. Width 13.2 % (11.5-14.5); White Blood Cell Count 5.8 10^3/uL (4.8-10.8)
[2024-05-24] MEDS: LAMICTAL 100 MG PO (08:50)
[2024-05-24] MEDS: TYLENOL 650 MG PO ×3 (08:50→21:02)
[2024-05-24] MEDS: VITAMIN D3 (cholecalciferol) 50 MCG PO (08:51)
[2024-05-24] MEDS: LEXAPRO 10 MG PO (08:51)
[2024-05-24 08:55] LABS: ALT (SGPT) 90 U/L (0-35); AST (SGOT) 344 U/L (14-36); Albumin 2.8 g/dl (3.5-5.0); Alkaline Phosphatase 97 U/L (38-126); Blood Urea Nitrogen 10 mg/dl (7-17); Calcium 7.9 mg/dl (8.4-10.2); Carbon Dioxide 25 mmol/L (22-30); Chloride 106 mmol/L (98-107); Estimated Creatinine Clearance 77 ml/min; Glucose 97 mg/dl (70-99); Magnesium 1.7 mg/dl (1.6-2.3); Potassium 3.9 mmol/L (3.5-5.1); Sodium 139 mmol/L (135-145); Total Bilirubin 0.2 mg/dl (0.2-1.3); Total Protein 4.9 g/dl (6.3-8.2); eGFR > 60.00
[2024-05-24] MEDS: DIPROSONE 0.05% 1 APPLIC TOPICAL ×2 (08:55→19:59)
[2024-05-24 09:30] LABS: Creatine Phosphokinase 12952 U/L (30-135)
--- NOTE | 2024-05-24 11:21 | W.PN.HOSP.TC ---
Today's Communication/Plan
-
continue fluids
appreciate specialist support
Assessment / Plan
Assessment / Plan
MS. Yoly Hidalgo is a 63 yo woman with hx HLD on Simvastatin/Zetia, depression, nephrolithiasis who presents to the ER with 3 weeks generalized body aches and pains.
Rhabdomyolysis 2/2 statin use (although on it x 5 years) versus myositis/dermatomyositis as there is an association with rash.
-STOP STATIN and Ezetimibe
-continue NS @ 150 - patient with good urine output
-case discussed with Dr. Heck (Rheumatology)and I sent MICHELLE, IFA with reflex and an autoimmune myositis panel including HMGcoA reductase antibody - discussed with lab
-case also discussed with Dr. Lee (Neurology) - formal consult today
-PT/OT --> HH
-*Dr. Heck mentioned transfer to [place] - clarifying plan with her
-topical steroids for rash which is more likely related to known diagnosis of eczema
Depression
-SEED CUTTER Lamotrigine and Lexapro
Hx avascular necrosis
-SEED CUTTER Doxy
DVT PPx lovenox subQ
FULL CODE
51 minutes spent on patient care
Anticipated Discharge: 24 - 48 hours
Subjective/Interval History
-
Date of Service: May 24, 2024
continues to have proximal muscle pain and weakness
worked with PT, HH recommended
Objective Data
-
Labs:
Laboratory Results
05/24/24
07:34
WBC 5.8
Hgb 11.7 L
Hct 35.4 L
Plt Count 167
Sodium 139
Potassium 3.9
Chloride 106
Carbon Dioxide 25
BUN 10
Creatinine 0.6
Glucose 97
Calcium 7.9 L
Total Bilirubin 0.2
AST 344 H
ALT 90 H
Alkaline Phosphatase 97
Vital Signs:
Vital Signs
Temp Pulse Resp BP Pulse Ox
98.3 F 86 20 147/77 94
05/24/24 07:30 05/24/24 07:30 05/24/24 07:30 05/24/24 07:30 05/24/24 07:30
I&O
05/23/24 05/24/24 05/25/24
06:59 06:59 06:59
Intake Total 2520 / 2520
Output Total 750 / 750
Balance 1770 / 1770
Review of Systems
-
History Source: Patient
All other systems: Reviewed and negative
Physical Exam
-
General: No Apparent Distress
HEENT: PERRLA
Respiratory: Clear to Auscultation; Negative Wheezes
Cardiac: Regular Rhythm and S1/S2
GI: Soft and Nontender
Musculoskeletal: No Edema
Skin: Warm, Dry and Rash (upper back; maculpapular with confluence and e/o excoriation upper back )
Neuro: AO x 3 and Other (4+/5 strength bilaterall hip flexion; 3/5 strength LUE and 4/5 strengh RUE (limited 2/2 pain))
Psych: Calm
Data Reviewed
-
Diagnostic Radiology: Report Reviewed by me
Labs: Labs Reviewed by me
--- NOTE | 2024-05-24 12:19 | CON.NEURO ---
Consultation
Order
Date of Consultation: 05/24/24
Requesting Provider: Priti Jurado MD
Reason for Consult: weakness
CC: pain and weakness
HPI: This is a 63-year-old left-handed woman who presented to [facility] on May 06, 2024 with subacute progressive proximal upper and lower myalgias and weakness that began approximately three weeks ago. She initially experienced
a band of pain in her lower back, followed by pain in her legs, calves, and feet. Two weeks ago, her arms started hurting, with pain extending from the shoulder down to the elbow. She reports difficulty raising her arms and experiencing pain with
even small movements. She denies any vision problems or eyelid drooping.
She experiences weakness in her arms and legs, with the right leg being worse than the left. She has difficulty getting and ambulating. No falls, sphincter dysfunction, diplopia dysphagia or dyspnea.
Ms. Hidalgo has a history of osteoporosis. She was reportedly seen by pebble mill operator approximately 20 years ago for suspected rheumatoid arthritis and was treated with Plaquenil.
EKG: NSR, QTc Int : 475 ms
PDMP: Oxycodone Hcl (Ir) 5 Mg 12 tabs filled in on 02/26/2024
Labs: Normal WBCs, glucose�137, CK1 5235
Routine EEG(01/29/14)-normal
PMH: transverse myelitis (2005), HTN, DLP, KIARA, R avascular necrosis and rheumatoid, MDD, KIARA, osteoporosis Vitamin D deficiency, eczema, endometriosis nephrolithiasis, h/o COVId
PSH: R TKA, L CINDI, ovarian cystectomy, left ureteroscopy
SH: , retired hospital system administrator, non-smoker, no history excessive alcohol use
FH: Mother is in her 90s, no history of rheumatological disorders
All: Demerol, penicillin, Plaquenil�intolerant
ROS:Constitutional: Negative. Negative for chills, fever and unexpected weight change.
HENT: Negative for ear pain, hearing loss, tinnitus and trouble swallowing.
Eyes: Negative. Negative for photophobia, pain and visual disturbance.
Respiratory: Negative for cough, choking and shortness of breath.
Cardiovascular: Negative for chest pain, palpitations and leg swelling.
Gastrointestinal: Negative for abdominal pain and vomiting.
Endocrine: Negative. Negative for cold intolerance.
Genitourinary: Positive for intermittent urinary urgency
Musculoskeletal: Positive for myalgias
Skin: Positive for vesicular rash
Allergic/Immunologic: Negative. Negative for immunocompromised state.
Neurological: Positive for proximal arm and leg weakness
Psychiatric/Behavioral: Negative for behavioral problems, confusion and hallucinations.
General: Well developed. In no acute distress.
Cardio: Regular rate and rhythm without murmur. Extremities are without cyanosis or edema.
Neuro:
Mental Status: Alert, oriented to person, place, and date. Normal attention and recall. Good fund of knowledge. Follows complex requests across the midline. Comprehension, naming, and repetition intact. Immediate and delayed recall 3/3.
Cranial Nerves: Pupils are equally round and reactive to light. EOMs full. Visual marcelino full to confrontation. No ptosis. No nystagmus. V1-V3 intact to light touch and pinprick bilaterally, symmetric. Face symmetric. Normal hearing AU. The
palate elevated well. SCMs and traps 5/5. Tongue midline. No dysarthria.
Motor: Normal bulk and tone. No pronator or arm drift. Strength 5/5 throughout, except for BL delt 4-/5, IP/KE 4/5. No clonus.
Reflexes: 2+ throughout the upper extremities and 3+ knees. 2/2 in AJs. Plantar responses flexor bilaterally.Garcia's-neg BL
Sensory: Normal JPS at the toes
Coordination: No dysmetria or tremor.
Gait: deferred
Assessment and Plan:
I. 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
II. History of transverse myelitis
III. KIARA, MDD
-Fall precautions
-Follow-up myositis panel
-PT
-NCS/EMG with RNS
-Avoid neurotoxic medication
-Consider muscle biopsy based on serology and EMG result
-Rheumatology consult
-DVT prophylaxis
I personally reviewed all radiology and labs along with past medical records pertinent to current medical problems. Total time spent in patient care is 60 minutes.
Thank you for allowing us to participate in the care of this patient. We will continue to follow. Please do not hesitate to contact us with any questions or concerns.
Subjective/Objective
Subjective Data
Date of Service: May 24, 2024
Objective Data
Vital Signs
Temp Pulse Resp BP Pulse Ox
37.1 C 100 20 161/88 96
05/24/24 11:58 05/24/24 11:58 05/24/24 11:58 05/24/24 11:58 05/24/24 11:58
Lab Results
05/24/24 07:34
05/24/24 07:34
Sodium 139 mmol/L (135-145) 05/24/24 07:34
Potassium 3.9 mmol/L (3.5-5.1) 05/24/24 07:34
BUN 10 mg/dl (7-17) 05/24/24 07:34
Glucose 97 mg/dl (70-99) 05/24/24 07:34
Calcium 7.9 mg/dl (8.4-10.2) L 05/24/24 07:34
Patient Allergies
meperidine HCl [From Demerol] Allergy (Verified 05/23/24 13:52)
extreme confusion/hallucination
Penicillins Allergy (Verified 05/23/24 13:52)
Rash
Medications
-
Active Medications
Generic Name Dose Route Start Last Admin
Trade Name Freq PRN Reason Stop Dose Admin
Acetaminophen 650 mg 05/24/24 08:14 05/24/24 08:50
Acetaminophen 325 Mg Tablet PO 06/20/24 17:35 650 mg
Q4HPRN PRN Administration
mild pain/VELAZQUEZ/temp> 100.4F
Betamethasone Dipropionate 0 applic 05/23/24 20:00 05/24/24 08:55
Betamethasone Dipropionate 0.05% (Ointment) 15 Gram Tube TOPICAL 06/20/24 19:59 1 applic
BID LUCINA Administration
Bisacodyl 10 mg 05/23/24 18:51
Bisacodyl 10 Mg Rectal Suppository RECTAL 06/20/24 18:50
I26QUID PRN
constipation
Cholecalciferol 50 mcg 05/24/24 08:00 05/24/24 08:51
Cholecalciferol (Vitamin D3) 50 Mcg Tablet (2,000 Units) PO 06/21/24 07:59 50 mcg
DAILY LUCINA Administration
Enoxaparin Sodium 40 mg 05/23/24 18:51 05/23/24 20:17
Enoxaparin Sodium 40 Mg/0.4 Ml Syringe SC 06/20/24 18:50 40 mg
QPM LUCINA Administration
Escitalopram Oxalate 10 mg 05/24/24 08:00 05/24/24 08:51
Escitalopram 10 Mg Tablet PO 06/21/24 07:59 10 mg
DAILY LUCINA Administration
Sodium Chloride 1,000 mls @ 150 mls/hr 05/23/24 16:45 05/24/24 10:19
Nss IV 1,000 mls
.Q6H40M LUCINA Administration
Lamotrigine 100 mg 05/24/24 08:00 05/24/24 08:50
Lamotrigine 100 Mg Tablet PO 06/21/24 07:59 100 mg
DAILY LUCINA Administration
Polyethylene Glycol 17 grams 05/23/24 18:51
Polyethylene Glycol Powder 17 Grams Packet PO 06/20/24 18:50
DAILYPRN PRN
constipation
Senna/Docusate Sodium 1 tablet 05/23/24 18:51
Docusate W/Senna (Lakesha-Colace) Tablet PO 06/20/24 18:50
BIDPRN PRN
constipation
Sodium Chloride 0 flush 05/23/24 19:00
Sodium Chloride 0.9% (Flush) Syringe IV 06/20/24 18:59
PER PROTOCOL LUCINA
Home Medications
�Medication �Instructions �Recorded
lamotrigine 100 mg tablet 100 mg PO DAILY anxiety 10/22/19
escitalopram oxalate 10 mg tablet 10 mg PO DAILY 10/06/21
cholecalciferol (vitamin D3) 50 50 mcg PO DAILY 05/23/24
mcg (2,000 unit) tablet
doxycycline hyclate 100 mg capsule 100 mg PO DAILY 05/23/24
ezetimibe 10 mg-simvastatin 40 mg 1 tab PO QPM 05/23/24
tablet
Vital Signs and Labs
-
Vital Signs and Labs:
Vital Signs
Temp Pulse Resp BP Pulse Ox
37.1 C 100 20 161/88 96
05/24/24 11:58 05/24/24 11:58 05/24/24 11:58 05/24/24 11:58 05/24/24 11:58
Lab Results
05/24/24 07:34
05/24/24 07:34
Sodium 139 mmol/L (135-145) 05/24/24 07:34
Potassium 3.9 mmol/L (3.5-5.1) 05/24/24 07:34
BUN 10 mg/dl (7-17) 05/24/24 07:34
Glucose 97 mg/dl (70-99) 05/24/24 07:34
Calcium 7.9 mg/dl (8.4-10.2) L 05/24/24 07:34
Medications
-
Medications:
Generic Name Dose Route Start Last Admin
Trade Name Freq PRN Reason Stop Dose Admin
Acetaminophen 650 mg 05/24/24 08:14 05/24/24 15:56
Acetaminophen 325 Mg Tablet PO 06/20/24 17:35 650 mg
Q4HPRN PRN Administration
mild pain/VELAZQUEZ/temp> 100.4F
Betamethasone Dipropionate 0 applic 05/23/24 20:00 05/24/24 08:55
Betamethasone Dipropionate 0.05% (Ointment) 15 Gram Tube TOPICAL 06/20/24 19:59 1 applic
BID LUCINA Administration
Bisacodyl 10 mg 05/23/24 18:51
Bisacodyl 10 Mg Rectal Suppository RECTAL 06/20/24 18:50
[id number] PRN
constipation
Cholecalciferol 50 mcg 05/24/24 08:00 05/24/24 08:51
Cholecalciferol (Vitamin D3) 50 Mcg Tablet (2,000 Units) PO 06/21/24 07:59 50 mcg
DAILY LUCINA Administration
Enoxaparin Sodium 40 mg 05/23/24 18:51 05/23/24 20:17
Enoxaparin Sodium 40 Mg/0.4 Ml Syringe SC 06/20/24 18:50 40 mg
QPM LUCINA Administration
Escitalopram Oxalate 10 mg 05/24/24 08:00 05/24/24 08:51
Escitalopram 10 Mg Tablet PO 06/21/24 07:59 10 mg
DAILY LUCINA Administration
Sodium Chloride 1,000 mls @ 125 mls/hr 05/23/24 16:45 05/24/24 10:19
Nss IV 1,000 mls
.Q8H LUCINA Administration
Lamotrigine 100 mg 05/24/24 08:00 05/24/24 08:50
Lamotrigine 100 Mg Tablet PO 06/21/24 07:59 100 mg
DAILY LUCINA Administration
Polyethylene Glycol 17 grams 05/23/24 18:51
Polyethylene Glycol Powder 17 Grams Packet PO 06/20/24 18:50
DAILYPRN PRN
constipation
Senna/Docusate Sodium 1 tablet 05/23/24 18:51
Docusate W/Senna (Lakesha-Colace) Tablet PO 06/20/24 18:50
BIDPRN PRN
constipation
Sodium Chloride 0 flush 05/23/24 19:00
Sodium Chloride 0.9% (Flush) Syringe IV 06/20/24 18:59
PER PROTOCOL LUCINA
Home Medications
-
Home Medications
lamotrigine 100 mg tablet 100 mg PO DAILY anxiety 10/22/19
escitalopram oxalate 10 mg tablet 10 mg PO DAILY Depression 10/06/21
cholecalciferol (vitamin D3) 50 mcg (2,000 unit) tablet 50 mcg PO DAILY Supplement 05/23/24
doxycycline hyclate 100 mg capsule 100 mg PO DAILY Infection 05/23/24
ezetimibe 10 mg-simvastatin 40 mg tablet 1 tab PO QPM High Cholesterol 05/23/24
--- NOTE | 2024-05-24 15:03 | CM ---
Addendum entered by Jennifer Oneill 05/24/24 15:53:
Needs Auth for transfer to [place].
Original Note:
home care manager reviewed patient's chart and met with patient and patient lives with spouse is independent with adl's and ambulation, no dme, per patient she is for possible transfer to [place] for Rheumatology.
PCP: Carmita Mcmanus
Pharmacy: [facility]
Plan; Patient to transfer to [place] per physician notes.
[2024-05-24] MEDS: LOVENOX 40 MG SC (18:03)
[2024-05-24 18:50] LABS: Hepatitis C Antibody Negative (Negative)
[2024-05-24] MEDS: TORADOL 15 MG IV (19:54)
[2024-05-25] MEDS: NSS 1000 IV ×2 (01:38→10:17)
[2024-05-25] MEDS: TORADOL 15 MG IV ×3 (02:03→15:06)
[2024-05-25] MEDS: TYLENOL 650 MG PO ×3 (02:04→18:20)
[2024-05-25 02:47] VITALS: BP 158/85
[2024-05-25 07:40] VITALS: BP 157/91
[2024-05-25] MEDS: VITAMIN D3 (cholecalciferol) 50 MCG PO (08:20)
[2024-05-25] MEDS: DIPROSONE 0.05% 1 APPLIC TOPICAL (08:21)
[2024-05-25] MEDS: LEXAPRO 10 MG PO (08:21)
[2024-05-25] MEDS: LAMICTAL 100 MG PO (08:21)
[2024-05-25 08:39] LABS: ALT (SGPT) 82 U/L (0-35); AST (SGOT) 335 U/L (14-36); Albumin 2.5 g/dl (3.5-5.0); Alkaline Phosphatase 109 U/L (38-126); Blood Urea Nitrogen 7 mg/dl (7-17); Calcium 7.9 mg/dl (8.4-10.2); Carbon Dioxide 23 mmol/L (22-30); Chloride 109 mmol/L (98-107); Estimated Creatinine Clearance 77 ml/min; Glucose 95 mg/dl (70-99); Potassium 3.6 mmol/L (3.5-5.1); Sodium 139 mmol/L (135-145); Total Bilirubin 0.1 mg/dl (0.2-1.3); Total Protein 4.6 g/dl (6.3-8.2); eGFR > 60.00
[2024-05-25 08:49] LABS: Creatine Phosphokinase 12990 U/L (30-135)
[2024-05-25 11:15] VITALS: BP 146/83
--- NOTE | 2024-05-25 11:25 | CM ---
Addendum entered by Jennifer Oneill 05/25/24 17:00:
Patient has been approved by insurance waiting on [facility] on [address] [place] [address] to have a bed. Patient and physician aware.
Original Note:
Plan is for patient to transfer to [facility], [address] [place] [address]. Auth was submitted to patient's insurance as requested by [facility]. Per admissions at [facility] they will not release a bed without insurance Auth.
All clinicals provided to [facility] patient's insurance, waiting on Auth.
Plan; Waiting on determination from insurance.
--- NOTE | 2024-05-25 11:30 | W.PN.HOSP.TC ---
Today's Communication/Plan
-
awaiting auth for transfer to [place]
Assessment / Plan
Assessment / Plan
MS. Yoly Hidalgo is a 63 yo woman with hx HLD on Simvastatin/Zetia, depression, nephrolithiasis who presents to the ER with 3 weeks generalized body aches and pains.
Rhabdomyolysis 2/2 statin use (although on it x 5 years) versus myositis/dermatomyositis as there is an association with rash.
-STOP STATIN and Ezetimibe
-case discussed with Dr. Heck (Rheumatology)and I sent MICHELLE, IFA with reflex and an autoimmune myositis panel including HMGcoA reductase antibody - discussed with lab
-case also discussed with Dr. Lee (Neurology) - appreciate formal consult
-PT/OT --> HH
-*per rheumatology recommendations, transfer to [place] initiated, now awaiting auth
-OK to stop IVF as this is more likely myositis (discussed with Dr. Heck today)
-topical steroids for rash which is more likely related to known diagnosis of eczema
Depression
-FILER FINISH Lamotrigine and Lexapro
DVT PPx lovenox subQ
FULL CODE
51 minutes spent on patient care
Anticipated Discharge: 24 - 48 hours
Subjective/Interval History
-
Date of Service: May 25, 2024
continues to have pain
Toradol helping
Objective Data
-
Labs:
Laboratory Results
05/25/24
07:18
Sodium 139
Potassium 3.6
Chloride 109 H
Carbon Dioxide 23
BUN 7
Creatinine 0.5 L
Glucose 95
Calcium 7.9 L
Total Bilirubin 0.1 L
AST 335 H
ALT 82 H
Alkaline Phosphatase 109
Vital Signs:
Vital Signs
Temp Pulse Resp BP Pulse Ox
97.8 F 90 18 157/91 94
05/25/24 07:40 05/25/24 07:40 05/25/24 07:40 05/25/24 07:40 05/25/24 07:40
I&O
05/24/24 05/25/24 05/26/24
06:59 06:59 06:59
Intake Total 2520 / 2520 2219
Output Total 750 / 750
Balance 1770 / [id number]
Review of Systems
-
History Source: Patient
All other systems: Reviewed and negative
Physical Exam
-
General: No Apparent Distress
HEENT: PERRLA
Respiratory: Clear to Auscultation; Negative Wheezes
Cardiac: Regular Rhythm and S1/S2
GI: Soft and Nontender
Musculoskeletal: No Edema
Skin: Warm, Dry and Rash (upper back; maculpapular with confluence and e/o excoriation upper back )
Neuro: AO x 3 and Other (4+/5 strength bilaterall hip flexion; 3/5 strength LUE and 4/5 strengh RUE (limited 2/2 pain))
Psych: Calm
Data Reviewed
-
Diagnostic Radiology: Report Reviewed by me
Labs: Labs Reviewed by me
--- NOTE | 2024-05-25 14:50 | CM ---
Call placed to [facility] to check on Auth Status , call ref number [id number], auth was approved [id number] for transfer to [facility]. Update to CM.
--- NOTE | 2024-05-25 15:06 | W.DCSUMMARY ---
Discharge Summary
Discharge Data
Date of Admission: 05/23/24
Date of Discharge: 05/25/24
-
Pending Results: Yes
Additional Pending Results:
MICHELLE, IFA with reflex and an autoimmune myositis panel including HMGcoA reductase antibody
Hospital Course
Discharging Physician : Dr. Priti Jurado
Disposition : [facility]
Primary care physician : Dr. Carmita Mcmanus
Principal Discharge diagnosis : Myositis
Hospital Course :
Ms. Yoly Hidalgo is a 63 yo woman with hx HLD on Simvastatin/Zetia, depression, nephrolithiasis who presents to the ER with 3 weeks of generalized body aches and pains, as well as a rash on her upper back. Triage vitals T 98.2, P 103, BP 146/88.
Labs with CK 15,235. On exam patient was in no acute distress, she had limited flexion hips and shoulders 2/2 pain and weakness. She was admitted to medicine for treatment of statin-induced myopathy/rhabdo versus myositis. Case discussed on the
phone with Rheumatology and labs including MICHELLE, IFA with reflex and an autoimmune myositis panel including HMGcoA reductase antibody were sent. Neurology was also consulted. Statin held, she was given IVF. CK 12,900 the next two mornings.
Clinical picture more suggestive of myositis. With minimal improvement in symptoms, Rheumatology recommended that patient be transferred down to [place] for expedited work-up including muscle biopsy. She was accepted and transferred on 05/25/24.
Time spent on discharge was 35 minutes.
Important imaging findings :
Procedure findings :
Discharge Plan
-
Patient Disposition: Acute Care Hospital
Discharge Orders:
Discharge Patient (As Directed); Ordered 05/24/24
Ordered By: Priti Jurado
Discharge Date and Time
Print Language: SLOVENIAN
[2024-05-25 15:15] VITALS: BP 159/89
[2024-05-25] MEDS: LOVENOX 40 MG SC (18:20)
[2024-05-25 23:54] LABS: F-Actin Antibody IgG 3 Units (0-19)
[2024-05-26 00:25] LABS: ANA, IgG Reflex to HEp-2 None Detected (None Detected)
[2024-05-26 01:27] LABS: Smith/RNP (ENA), IgG 1 Units (0-19)
[2024-05-26 06:40] LABS: SSA 52 (Ro)(ENA) Ab, IgG 1 AU/mL (0-40); SSA 60 (Ro)(ENA) Ab, IgG 0 AU/mL (0-40); SSB (La)(ENA) Ab, IgG 0 AU/mL (0-40)
== END 2024-05-25 20:01 | disposition short-term general hospital (02) | DRG 556 ==
LOC: 4 WEST ACU 17:43
PROVIDERS: ADMITTING PHYSICIAN Student in an Organized Health Care Education/Training Program; CONSULT PHYSICIAN Psychiatry & Neurology Neurology; EMERGENCY PHYSICIAN Emergency Medicine; FAMILY PHYSICIAN Emergency Medicine
DX: M60.9 Myositis, unspecified (principal); E78.00 Pure hypercholesterolemia, unspecified; N20.0 Calculus of kidney; F32.9 Major depressive disorder, single episode, unspecified; F41.1 Generalized anxiety disorder; L30.9 Dermatitis, unspecified; M06.9 Rheumatoid arthritis, unspecified; I10 Essential (primary) hypertension; M81.0 Age-related osteoporosis without current pathological fracture; Z86.16 Personal history of COVID-19; Z96.651 Presence of right artificial knee joint; Z96.642 Presence of left artificial hip joint; Z11.52 Encounter for screening for COVID-19
CPT/HCPCS: 80053; 81003; 82550; 83735; 84443; 85025; 85652; 86015; 86038; 86140; 86235; 86803; 87502; 87811; 96360; 96361; 97163; 97167; 99284

== ENCOUNTER 2024-06-07 22:09 | Inpatient (IN) | payer OTHER, MEDICARE, SELFPAY ==
[2024-06-07 18:32] VITALS: BP 141/87
[2024-06-07 19:13] VITALS: BP 140/67
--- NOTE | 2024-06-07 19:13 | ED.GENMED ---
History of Present Illness
General
Chief Complaint: Breathing Problem
Source: patient and spouse
Exam Limitations: none
Time Seen by Provider: 06/07/24 19:00
History of Present Illness
History of Present Illness:
This is a 63 year old female that comes in with c/o questionable PE. States that a few weeks ago she was here with Rhabdo. States that after being her for 2 days she was transferred to [facility]. States that she was discharged from there
last Tuesday. States that they had done a CT of the chest, and US of the abd when she was there. States that they also did a muscle biopsy and took Fluid off her lung. States that this came back with carcinoma. States that today they went for a Ct
of the abd for follow up and after they left she was called and told that they thing there is a PE but they were not sure. States that she was told to come to the ER for a CT of the chest. States that she has had right sided back pain and that she
is SOB. States that it is like a marathon when she goes up the steps. Denies any fever, chills, chest pain, abd pain, nausea, vomiting, diarrhea, headache, dizziness, urinary burning.
Past History
Past History
ED Past Medical History: Cancer (Questionable ovarian cancer, Skin CA), GERD, Hypercholesterolemia, Psychiatric (Anxiety, Depression) and Other (kidney stones, PNA, Eczema, Endometriosis, Ovarian cyst, )
ED Past Surgical History: Gynecological, Orthopedic (ORIF left wirst, Right TKR, Left THR) and Urological (Left ureteral stent)
Social History
Tobacco: Non-smoker
Alcohol: None
Drug: None
Personal:
Living: with family
Employment: Not employed
Family History
Family History: Other (Noncontributory)
Review of Systems
Review of Systems
All Other Systems: ROS reviewed and negative except as documented in HPI and ROS
Constitutional: Reports no symptoms; Denies fever or chills
EENT: Reports no symptoms
Respiratory: Reports trouble breathing; Denies cough
Cardiac: Denies chest pain
ABD/GI: Reports no symptoms; Denies abdominal pain, nausea, vomiting or diarrhea
: Reports no symptoms; Denies dysuria, frequency or urgency
Musculoskeletal: Reports back pain (Right sided upper back pain)
Skin: Reports no symptoms
Neurological: Reports no symptoms; Denies dizzy or headache
Psychiatric: Reports no symptoms
Phy Exam
General Physical Exam
General Presentation: no apparent distress
General age: appears stated age
General Skin: warm and dry
General Habitus: normal
General Mental: alert
General Hydration: dry mucous membranes
ENT Exam
ENT Exam: TM's normal, pharynx normal and neck supple
Eye Exam
Eye Exam: EOMI
Cardiovascular Exam
Cardiovascular Exam: regular rate/rhythm and normal peripheral pulses
Pulmonary Exam
Pulmonary Exam: no respiratory distress, no rales, chest non tender, no crackles, no rhonchi, no wheezing, no cough and decreased breath sounds (Right sided, Left lung clear)
Gastrointestinal Exam
Gastrointestinal Exam: normal bowel sounds, non tender, soft, no organomegaly, no pulsatile mass and non distended
Musculoskeletal Exam
Musculoskeletal Exam: full ROM, back pain (Right sided mid back pain) and other (Left arm swelling nonpitting. )
Skin Exam
Skin Exam: normal color, warm/dry, no rash and no petechia
Psychiatric Exam
Psychiatric Exam: normal mood/affect
Scores
Heart Failure Risk
Heart Failure Risk Score: Not Applicable
Course
Orders/Labs/Results
Orders:
Orders
06/07/24 19:13
CT Chest Pe Study Urgent
Comment:
Reason For Exam: SOB, questionable PE on CT of abd.
0.9% Sodium Chloride 500 ml [Nss] 500 ml IV BOLUS
06/07/24 19:19
US Arms, Left [US Periph Venous UPPER Ext LT] Urgent
Comment:
Reason For Exam: Swelling
06/07/24 19:25
Electrocardiogram (*1) Urgent
Reason for Study: Shortness of Breath
EKG- Treatment ONCE
06/07/24 19:36
Add On- LAB Urgent
Tests Added?: Pro-BNP
06/07/24 19:42
Complete Blood Count/With Diff Urgent
Comprehensive Metabolic Panel Urgent
D-Dimer Urgent
NT-proBNP Urgent
Comment: ADD ON
Prothrombin Time Urgent
Troponin I Urgent
Abnormal Lab Results
06/07/24
19:42
WBC 28.9 H 10^3/uL
(4.8-10.8)
Abs Immat Gran (auto) 0.8 H 10^3/uL
(0-0.05)
Absolute Neuts (auto) 25.1 H 10^3/uL
(1.4-6.5)
Absolute Lymphs (auto) 0.9 L 10^3/uL
(1.2-3.4)
Absolute Monos (auto) 2.1 H 10^3/uL
(0.1-0.6)
Immature Gran % 2.6 H %
(0-0.5)
Neutrophils % 87.1 H %
(42.2-75.2)
Lymphocytes % 2.9 L %
(20.5-51.1)
D-Dimer > 20.00 H ug/mlFEU
(0.00-0.50)
Sodium 131 L mmol/L
(135-145)
Chloride 94 L mmol/L
(98-107)
BUN 37 H mg/dl
(7-17)
Glucose 122 H mg/dl
(70-99)
AST 214 H U/L
(14-36)
ALT 130 H U/L
(0-35)
06/07/24 19:42
06/07/24 19:42
Leukocytosis (patient is on Steroids), D-dimer elevated. Sodium slightly low. Chloride slightly low. Dehydration. hyperglycemia. AST/ALT elevation. PT-13.4 with INR 0.97, Troponin <0.012, Pro-BNP 45.4
Vital Signs
Initial and Last Documented VS:
Initial Vital Signs
Temp Pulse BP Pulse Ox
97.6 F 96 141/87 98
06/07/24 18:32 06/07/24 18:32 06/07/24 18:32 06/07/24 18:32
Last Documented Vital Signs
Temp Pulse Resp BP Pulse Ox
97.6 F 91 21 140/67 95
06/07/24 18:32 06/07/24 19:45 06/07/24 19:30 06/07/24 19:13 06/07/24 19:45
MDM/Problems Addressed
Differential Diagnosis Includes:
Pleural effusion. PE
MDM/Problems Addressed:
This is a 63 year old female that comes in for a CT of the chest. States that she has a Ct of the abd today and she was called and told that she needed to come to the ER and get a CT of the chest as they think they saw a PE.
Will check labs, CT chest and US the left arm due to swelling.
Back into see patient and . Explained that she does have Pulmonary embolism in the right upper and lower lobes. There is also DVT in the left arm. Patient will be started on Heparin and admitted. Hospitalist notified.
Chronic conditions affecting care: Cancer
Acute Exacerbation and/or Progression of Chronic Illness: Cancer
*Radiology
Radiology exam reviewed: radiology read reviewed (US-Acute occlusive thrombosis in the left cephalic vein in the antecubital fossa and forearm CT chest- Acute pulmonary arterial emboli in the right upper and lower lobe. No CTA evidence for
pulmonary arterial hypertension or right heart strain. Small to moderate-sized subpleural airspace ), all reviewed NAD by ED Provider (CT chest cont- consolidation in the anterior basilar segment of the right lower lobe. Diagnostic possibilities are
(1) acute pulmonary infarct or (2) right lower lobe Pneumonia. Mild to moderate dependent subsegmental atelectasis in the lower lobes of both lungs. Thick band of scarring or subsegment) and other (CT cont-atelectasis in the posterior basilar
segment of the left lower lobe. )
*Pulse Oximetry
Patient hypoxic: no
*EKG
Interpreted by ED Provider?: Yes
Heart Rate: 86
Rate: normal
Rhythm: sinus
[place]: normal axis
Interval: normal interval
QRS Pattern: normal QRS
Ischemia: T-wave inversion (I, aVL, V2, V3, Checked by DR. Portillo)
*Tool Operator Interpretation
Rate: normal
Heart Rate: 88
Rhythm: sinus
*Critical Care Note
Total Time (30-74mins, 75-104mins- exclusive of procedures): Not Applicable
ED Attending Note
-
Portions of this chart may have been created with voice recognition software.� Occasional wrong word or��sound alike� substitutions may have occurred due to the inherent limitations of voice recognition software.
Discharge Plan
Departure
Patient Disposition: Admit
Date of Disposition: 06/07/24
Time of Disposition: 21:15
Admit to: Telemetry
Presentation/result/management discussed w/ accepting MD/DO: Hospitalist
Patient with high blood pressure during this ER visit?: Yes
Condition: Good
Covid-19: Not Applicable
Discharge Problem:
Pulmonary embolism on right, Acute deep vein thrombosis (DVT) of left upper extremity
Prescriptions:
No Action
lamotrigine 100 MG tablet
100 mg PO DAILY
escitalopram oxalate 10 MG tablet
10 mg PO DAILY
prednisone 10 mg Tablet
30 mg PO BID
amlodipine 5 mg Tablet
5 mg PO DAILY
calcium carbonate [Calcium 500] 500 mg calcium (1,250 mg) Tablet
500 mg PO DAILY
ibuprofen [Advil] 200 mg Tablet
600 mg PO Q6HPRN PRN (Reason: mild pain)
ezetimibe 10 mg Tablet
10 mg PO DAILY
cholecalciferol (vitamin D3) [Vitamin D3] 25 mcg (1,000 unit) Tablet
25 mcg PO DAILY
Referrals:
UNKNOWN - PT DOES,NOT KNOW [Unknown Provider] -
Interventions
Interventions:
*Risk Screen - Suicide Last Done: 06/07/24 18:34
*General Assessment Last Done: 06/07/24 19:13
*Neglect/Abuse Screening Last Done: 06/07/24 19:21
*ED COVID-19 Vaccine History Last Done: 06/07/24 18:28
Discharge Date and Time
Print Language: ICELANDIC
[2024-06-07] MEDS: NSS 500 IV (19:45)
[2024-06-07 20:03] LABS: ALT (SGPT) 130 U/L (0-35); AST (SGOT) 214 U/L (14-36); Alkaline Phosphatase 125 U/L (38-126); Blood Urea Nitrogen 37 mg/dl (7-17); Calcium 9.9 mg/dl (8.4-10.2); Carbon Dioxide 24 mmol/L (22-30); Chloride 94 mmol/L (98-107); Estimated Creatinine Clearance 77 ml/min; Glucose 122 mg/dl (70-99); Sodium 131 mmol/L (135-145); Total Bilirubin 0.6 mg/dl (0.2-1.3); Total Protein 6.7 g/dl (6.3-8.2); eGFR > 60.00
[2024-06-07 20:11] LABS: NT-proBNP 45.4 pg/ml; Troponin I < 0.012 ng/ml
[2024-06-07 20:15] LABS: INR 0.97; PT 13.4 Sec (11.4-14.6)
[2024-06-07 20:21] LABS: Hematocrit 39.6 % (37.0-47.0); Hemoglobin 13.2 g/dL (12.0-16.0); Mean Corp Hgb Conc. 33.3 g/dL (33.0-37.0); Mean Corpuscular Hgb 30.2 pg (27.0-31.0); Mean Corpuscular Volume 90.6 fL (81.0-99.0); Mean Platelet Volume 9.5 fL (7.4-10.4); Platelet Count 251 10^3/uL (130-400); Red Blood Cell Count 4.37 10^6/uL (4.20-5.40); Red Cell Dist. Width 13.7 % (11.5-14.5); White Blood Cell Count 28.9 10^3/uL (4.8-10.8)
[2024-06-07 20:32] LABS: D-Dimer > 20.00 ug/mlFEU (0.00-0.50)
[2024-06-07 20:37] LABS: % Basophils 0.2 % (0-2); % Immature Granulocytes 2.6 % (0-0.5); % Lymphocytes 2.9 % (20.5-51.1); % Monocytes 7.2 % (1.7-9.3); % Neutrophils 87.1 % (42.2-75.2); Absolute Basophils 0.1 10^3/uL (0-0.2); Absolute Immature Granulocytes 0.8 10^3/uL (0-0.05); Absolute Lymphocytes 0.9 10^3/uL (1.2-3.4); Absolute Monocytes 2.1 10^3/uL (0.1-0.6); Absolute Neutrophils 25.1 10^3/uL (1.4-6.5); Nucleated Red Blood Cells % 0 %
[2024-06-07 20:44] VITALS: BP 150/67
[2024-06-07 21:00] VITALS: BP 143/72
[2024-06-07] MEDS: HEPARIN 4900 UNITS IV (21:34)
[2024-06-07 21:35] LABS: APTT 25.7 Sec (23.4-35.0)
[2024-06-07] MEDS: HEPARIN 25000 UNITS/250 ML IV (21:36)
--- NOTE | 2024-06-07 21:49 | HPS.HSE ---
Family Physician
-
Family Physician: Carmita Mcmanus MD
Chief Complaint
-
shortness of breath
History of Present Illness
63-year-old female past medical history of hypertension, hyperlipidemia, depression, nephrolithiasis, transverse myelitis, avascular necrosis, osteoporosis, eczema, endometriosis, presenting to the hospital after she received a call from [facility] today
stating that she had a pulmonary embolism and she needed to go to the hospital.
Patient was admitted here with statin induced myopathy/rhabdomyolysis versus myositis few weeks ago. Patient was seen by rheumatology who eventually recommended transfer to [facility] for expedited workup including muscle biopsy. 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
diagnosed with necrotizing myositis. He underwent rheumatologic workup which was negative. She was found to have pleural effusion and underwent thoracentesis. Pneumonia was ruled out.
She was discharged this past Tuesday. A few days ago she received a call stating that while there were malignant ovarian cells in the pleural fluid. She denies any prior history of malignancy or ovarian pathology. Outpatient follow-up with
gynecology was recommended. Today while at [facility] she underwent blood testing for CA 19-[address] abdomen pelvis and pelvic ultrasound. CT abdomen pelvis incidentally picked up pulmonary embolism.
She had been having ongoing shortness of breath for the past several weeks associate with back pain. Denies dizziness or syncope. Denies cough. Denies chest pain.
Her myositis affects her upper extremities. She does have pain and swelling in her upper extremities secondary to this.
Denies any family history of blood clots.
Medical History
Past Medical History
Past Medical History: Reports Other (hypertension, hyperlipidemia, depression, nephrolithiasis, transverse myelitis, avascular necrosis, osteoporosis, eczema, endometriosis)
Past Surgical History: Reports Other ( Gynecological, Orthopedic (ORIF left wirst, Right TKR, Left THR) and Urological (Left ureteral stent))
Social History
Tobacco: Non-smoker
Alcohol: None
Drug: None
Family History
Family History: Not pertinent
Allergies / Home Medications
Allergies reflects when Allergies were last updated in [employer].
Home Medications with original date entered in [employer]
Allergy/Medication List:
Allergies
Allergy/AdvReac Type Severity Reaction Status Date / Time
meperidine HCl [From Demerol] Allergy extreme Verified 06/07/24 19:24
confusion/hallucination
Penicillins Allergy Rash Verified 06/07/24 19:24
Home Medications
lamotrigine 100 mg tablet 100 mg PO DAILY anxiety 10/22/19
escitalopram oxalate 10 mg tablet 10 mg PO DAILY Depression 10/06/21
amlodipine 5 mg tablet 5 mg PO DAILY 06/07/24
calcium carbonate 500 mg PO DAILY 06/07/24
cholecalciferol (vitamin D3) 25 mcg (1,000 unit) tablet (Vitamin D3) 25 mcg PO DAILY 06/07/24
ezetimibe 10 mg tablet 10 mg PO DAILY 06/07/24
ibuprofen 200 mg tablet (Advil) 600 mg PO Q6HPRN PRN mild pain 06/07/24
prednisone 10 mg tablet 30 mg PO BID 06/07/24
Review of Systems
-
History Source: Patient
A 12 point ROS was completed and negative except as noted: Yes
Constitutional: Reports No Symptoms
EENT: Reports No Symptoms
Respiratory: Reports See HPI
Cardiac: Reports No Symptoms
Abdomen/GI: Reports No Symptoms
: Reports No Symptoms
Musculoskeletal: Reports No Symptoms
Skin: Reports No Symptoms
Neurological: Reports No Symptoms
Endocrine: Reports No Symptoms
Hematologic/Lymphatic: Reports No Symptoms
Psych: Reports No Symptoms
Physical Exam
Vital Signs
Vital Signs
Temp Pulse Resp BP Pulse Ox
97.6 F 87 20 143/72 95
06/07/24 18:32 06/07/24 21:15 06/07/24 21:15 06/07/24 21:00 06/07/24 21:15
Physical Exam
General: Well Developed, Well Nourished and No Apparent Distress
HEENT: NormoCephalic, Moist mucous membranes and Atraumatic
Respiratory: Clear
Cardiac: S1/S2 and Regular Rhythm; No Murmur or Rub
GI: Soft, Non Tender, Non Distended and Normal Bowel Sounds; No Organomegaly
Rectal: Deferred by Provider
Musculoskeletal: No Clubbing, No Cyanosis and No Edema
Skin: No Rash
Neuro: Nonfocal/grossly intact
Laboratory Results
-
06/07/24 19:42
06/07/24 19:42
Laboratory Results
PT 13.4 Sec (11.4-14.6) 06/07/24 19:42
INR 0.97 06/07/24 19:42
APTT Cancelled 06/07/24 21:06
Total Bilirubin 0.6 mg/dl (0.2-1.3) 06/07/24 19:42
AST 214 U/L (14-36) H 06/07/24 19:42
ALT 130 U/L (0-35) H 06/07/24 19:42
Alkaline Phosphatase 125 U/L (38-126) 06/07/24 19:42
Troponin I < 0.012 ng/ml 06/07/24 19:42
Data Reviewed
-
Lab Data: Labs Reviewed by me
Old Records: Reviewed
Impression/Plan
-
IMPRESSION:
PLAN:
# Right upper/lower lobe pulmonary emboli likely provoked from underlying malignancy
# Acute thrombus of left cephalic vein
-CT chest shows acute pulmonary emboli in the right upper and lower lobe, small to moderate-sized subpleural airspace consolidation in the anterior basilar segment of the right lower lobe could be acute pulmonary infarct versus right lower lobe
pneumonia, clinically more likely pulmonary infarct
-Heparin drip
-Pulmonology consulted
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
-AST has improved, ALT increased
-Continue prednisone
# Leukocytosis secondary to prednisone
-Continue to monitor
# Recent pleural effusion with malignant ovarian cells
-Patient recently underwent CT abdomen pelvis, ultrasound, CA 19-9 workup with gynecology at [facility]
Essential hypertension
-Continue amlodipine
Hyperlipidemia
-Continue Zetia
Anxiety/depression
-Continue Lamictal, Lexapro
History of nephrolithiasis
History of transverse myelitis
History of avascular necrosis
Osteoporosis
Eczema
Endometriosis
Full code
DVT prophylaxis�heparin drip
Regular diet
[2024-06-07 22:00] VITALS: BP 137/73
[2024-06-07 23:00] VITALS: BP 142/80
[2024-06-08] VITALS (8 sets, daily range): BP systolic 131–149; BP diastolic 74–91; BMI 23.3
[2024-06-08] MEDS: DELTASONE 30 MG PO ×3 (00:15→20:15)
[2024-06-08] MEDS: MOTRIN 600 MG PO ×2 (02:27→10:08)
[2024-06-08 04:39] LABS: ALT (SGPT) 106 U/L (0-35); AST (SGOT) 163 U/L (14-36); Albumin 3.4 g/dl (3.5-5.0); Alkaline Phosphatase 130 U/L (38-126); Blood Urea Nitrogen 35 mg/dl (7-17); Carbon Dioxide 24 mmol/L (22-30); Chloride 97 mmol/L (98-107); Estimated Creatinine Clearance 77 ml/min; Glucose 134 mg/dl (70-99); Potassium 4.7 mmol/L (3.5-5.1); Sodium 131 mmol/L (135-145); Total Bilirubin 0.4 mg/dl (0.2-1.3); eGFR > 60.00
[2024-06-08 04:44] LABS: APTT > 200 Sec (23.4-35.0); Hematocrit 37.8 % (37.0-47.0); Hemoglobin 12.5 g/dL (12.0-16.0); Mean Corp Hgb Conc. 33.1 g/dL (33.0-37.0); Mean Corpuscular Hgb 30.6 pg (27.0-31.0); Mean Corpuscular Volume 92.4 fL (81.0-99.0); Mean Platelet Volume 9.9 fL (7.4-10.4); Platelet Count 235 10^3/uL (130-400); Red Blood Cell Count 4.09 10^6/uL (4.20-5.40); White Blood Cell Count 25.9 10^3/uL (4.8-10.8)
--- NOTE | 2024-06-08 08:23 | W.PN.HOSP.TC ---
Addendum entered and electronically signed by Emmy Cha MD 06/08/24 13:49:
I saw and evaluated the patient. I reviewed the resident�s note and agree with findings and plan as documented in the resident�s note.
Acute PE with DVT
Hypercoagulable state due to likely underlying stage IV cancer suspect ovarian in etiology
Patient was started with heparin drip, to be transitioned to Eliquis 10 mg twice daily for 7 days, then 5 mg twice daily indefinitely.
CT chest did not show any right heart strain
Discussed with physician from [facility], who informed that outpatient CT also noted possible right rectus sheath hematoma
Follow hemoglobin given initiation of anticoagulation
Original Note:
Today's Communication/Plan
-
Switch heparin to Eliquis
Follow Hb with CBC
Continue prednisone
Monitor hemodynamically
Assessment / Plan
Assessment / Plan
Impression: 63-year-old female with recent diagnosis of necrotizing myositis, malignant pleural effusion with incidental right upper/lower lobe PE found on CT scan at [facility] who presents to ED on 06/07 after being advised of the findings with
several weeks of shortness of breath associated with back pain. Denies LE swellings, history of cancer, trauma, recent immobilization, cough, chest pain, abdominal pain. She has some nausea but no vomiting.
Assessment/plan:
#Unprovoked acute nonmassive PE with DVT
-PESI Class I, Low risk right upper/lower lobe PE with negative RV strain on CT.
-Acute occlusive thrombosis of left cephalic vein, acute occlusive BTK DVT.
-Hypercoagulable state suspect secondary to stage IV ovarian cancer.
-CT scan at [facility] also reports rectus sheath hematoma.
-Stop heparin drip, transition to Eliquis 10 mg BID for 7 days and 5 mg BID until seen by oncology.
-Pulmonology consulted.
-Follow Hb with CBC in AM, monitor hemodynamically.
#History of malignant pleural effusion with ovarian cells.
-Workup with CA 125, CT Abd/Pel at [facility] gynecology pending.
#Leukocytosis.
-Secondary to steroids.
#Hyponatremia
-Suspect hypovolemic hyponatremia.
-Continue IV fluid
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
-Hep C Ag serology negative.
-Denies alcohol use.
-Continue to monitor.
#Essential hypertension
-Continue amlodipine.
#Hyperlipidemia
-Continue Zetia
#Anxiety/depression
-Continue Lexapro, Lamictal.
DVT PPx�heparin
CODE STATUS: Full code
Data:
Bilateral LE peripheral vascular ultrasound 06/08/2024:
Positive for acute occlusive [id number] deep venous thrombosis within the right posterior tibial and peroneal veins.
Peripheral vascular ultrasound left upper extremity 06/07/2024:
ACUTE OCCLUSIVE THROMBOSIS in the LEFT CEPHALIC VEIN in the antecubital fossa and forearm.
CT chest 06/07/2024:
1. ACUTE PULMONARY ARTERIAL EMBOLI in the right upper and lower lobe.
2. No CTA evidence for pulmonary arterial hypertension or right heart strain.
3. Small to moderate-sized subpleural airspace consolidation in the anterior basilar segment of the right lower lobe. Diagnostic possibilities are (1) acute pulmonary infarct or (2) right lower lobe pneumonia.
4. Mild to moderate dependent subsegmental atelectasis in the lower lobes of both lungs.
5. Thick band of scarring or subsegmental atelectasis in the posterior basilar segment of the left lower lobe.
Anticipated Discharge: > 48 hours
Subjective/Interval History
-
Date of Service: June 08, 2024
I have seen and evaluated patient today at bedside. She reports feeling tired, unable to lift her arms. She also reports some residual SOB but no chest pain, cough, abdominal pain, palpitations, fever or chills. She had a CA-125 testing done at
[facility] and is expecting to hear the results today. She denies any history of blood clots, PE, family history of cancer, previous miscarriages, long distance travel/immobility (except for her recent 3 days stay in this hospital at the end of April),
or hemoptysis. She would like to go home today as she has spent the past 2 weeks in the hospital.
Objective Data
-
Labs:
Laboratory Results
06/07/24 06/07/24 06/08/24
19:42 21:06 03:38
WBC 25.9 H
Hgb 12.5
Hct 37.8
Plt Count 235
PT 13.4
INR 0.97
APTT 25.7 Cancelled > 200 H*
Sodium 131 L
Potassium 4.7
Chloride 97 L
Carbon Dioxide 24
BUN 35 H
Creatinine 0.6
Glucose 134 H
Calcium 9.0
Total Bilirubin 0.4
AST 163 H
ALT 106 H
Alkaline Phosphatase 130 H
06/08/24
11:53
WBC
Hgb
Hct
Plt Count
PT
INR
APTT Pending
Sodium
Potassium
Chloride
Carbon Dioxide
BUN
Creatinine
Glucose
Calcium
Total Bilirubin
AST
ALT
Alkaline Phosphatase
Vital Signs:
Vital Signs
Temp Pulse Resp BP Pulse Ox
97.8 F 89 16 138/78 92
06/08/24 03:51 06/08/24 03:51 06/08/24 03:51 06/08/24 03:51 06/08/24 03:51
Review of Systems
-
History Source: Patient
All other systems: Not reviewed unless documented
Constitutional: Reports Fatigue and Weakness; Denies Fever, Night Sweats or Chills
EENT: Reports No Symptoms Reported
Respiratory: Reports No Symptoms; Denies Cough
Cardiac: Reports No Symptoms; Denies Chest Pain or Palpitations
Abdomen/GI: Reports No Symptoms; Denies Abdominal Pain, Nausea or Vomiting
Genitourinary: Reports No Symptoms; Denies Dysuria or Frequency
Skin: Reports No Symptoms
Neuro: Reports No Symptoms
Physical Exam
-
General: No Apparent Distress
HEENT: PERRLA
Respiratory: Clear to Auscultation; Negative Wheezes
Cardiac: Regular Rhythm and S1/S2
GI: Soft and Nontender
Musculoskeletal: No Edema
Skin: Warm, Dry and Rash (upper back; maculpapular with confluence and e/o excoriation upper back )
Neuro: AO x 3 and Other (4+/5 strength bilaterall hip flexion; 3/5 strength LUE and 4/5 strengh RUE (limited 2/2 pain))
Psych: Calm
Data Reviewed
-
CT Scan: Report Reviewed by me and Discussed with Physician
Ultrasound: Report Reviewed by me and Discussed with Physician
Labs: Labs Reviewed by me and Discussed with Physician
Old Records: Reviewed
[2024-06-08 08:38] LABS: % Basophils 0.2 % (0-2); % Eosinophils 0.8 % (0-6); % Immature Granulocytes 2.1 % (0-0.5); % Lymphocytes 3.4 % (20.5-51.1); % Monocytes 7.9 % (1.7-9.3); % Neutrophils 85.6 % (42.2-75.2); Absolute Eosinophils 0.2 10^3/uL (0-0.7); Absolute Immature Granulocytes 0.5 10^3/uL (0-0.05); Absolute Lymphocytes 0.9 10^3/uL (1.2-3.4); Absolute Neutrophils 22.2 10^3/uL (1.4-6.5); Nucleated Red Blood Cells % 0 %
[2024-06-08] MEDS: ZETIA 10 MG PO (09:05)
[2024-06-08] MEDS: VITAMIN D3 (cholecalciferol) 25 MCG PO (09:06)
[2024-06-08] MEDS: LEXAPRO 10 MG PO (09:06)
[2024-06-08] MEDS: NORVASC 5 MG PO (09:06)
[2024-06-08] MEDS: LAMICTAL 100 MG PO (09:07)
[2024-06-08] MEDS: OSCAL CAL 500 500 MG PO (09:07)
--- NOTE | 2024-06-08 10:13 | CON.PUL ---
Consultation
Consultation Request
Date/Time Consultation Requested: 06/08/2024-9 AM
Date/Time Consultation Performed: 06/08/2024-9:30 AM
Requesting Provider: Hospitalist
Performing Provider: Dr. Garcia
Reason for Consultation: Pulmonary embolism
Medical History
-
Chief Complaint: Shortness of breath
History of Present Illness:
63-year-old female patient with history of underlying hypertension, hyperlipidemia, depression, nephrolithiasis, transverse myelitis, avascular necrosis, osteoporosis, endometriosis and suspected metastatic ovarian cancer currently being worked up
by [facility] with recent right pleural fluid analysis consistent with malignant ovarian cells and she presents with increasing shortness of breath found to have a pulmonary embolism-pulmonary consulted for pulmonary embolism 06/08/2024.. The patient
complains of some shortness of breath but she does not any chest pain, pleurisy, productive cough, chest congestion, shortness of breath, abdominal pain, nausea, weakness and has some mild lower extremity swelling.
Past Medical History
Past Medical History: None (Hypertension. Hyperlipidemia. Depression. Nephrolithiasis. Transverse myelitis. Avascular necrosis. Osteoporosis. Eczema. Endometriosis. Ovarian cancer stage IV with pleural mets-[facility])
Social History
Tobacco: Non-smoker
Alcohol: None
Living: With Family
Occupational Exposures: No known asbestos exposure
Environmental Exposures: No known tuberculosis exposure
Family History
Family History: Other (No family history of hypercoagulable state)
Allergies / Home Medications
Allergies
Allergy/AdvReac Type Severity Reaction Status Date / Time
meperidine HCl [From Demerol] Allergy extreme Verified 06/07/24 19:24
confusion/hallucination
Penicillins Allergy Rash Verified 06/07/24 19:24
Home Medications
�Medication �Instructions �Recorded �Confirmed �Last Taken �Type
lamotrigine 100 mg tablet 100 mg PO DAILY anxiety 10/22/19 06/07/24 06/07/24 History
escitalopram oxalate 10 mg tablet 10 mg PO DAILY Depression 03/06/07/24 06/07/24 History
amlodipine 5 mg tablet 5 mg PO DAILY 06/07/24 06/07/24 06/07/24 History
calcium carbonate 500 mg PO DAILY 06/07/24 06/07/24 06/07/24 History
cholecalciferol (vitamin D3) 25 25 mcg PO DAILY 06/07/24 06/07/24 06/07/24 History
mcg (1,000 unit) tablet (Vitamin
D3)
ezetimibe 10 mg tablet 10 mg PO DAILY 06/07/24 06/07/24 06/07/24 History
ibuprofen 200 mg tablet (Advil) 600 mg PO Q6HPRN PRN mild pain 06/07/24 06/07/24 06/07/24 12:00 History
prednisone 10 mg tablet 30 mg PO BID 06/07/24 06/07/24 06/07/24 History
Review of Systems
-
Unable to Obtain full review of systems at this time due to: Other (Per HPI)
Vitals / Labs / Diagnostic Testing
Vital Signs
Temp Pulse Resp BP Pulse Ox
99.5 F 76 16 132/84 95
06/08/24 07:30 06/08/24 07:30 06/08/24 07:30 06/08/24 07:30 06/08/24 07:30
Lab Data
06/08/24 03:38
06/08/24 03:38
Laboratory Results
06/07/24 06/07/24 06/08/24
19:42 21:06 03:38
PT 13.4
INR 0.97
APTT 25.7 Cancelled > 200 H*
Diagnostic Testing:
Physical Exam
-
Exam:
Well-nourished and well-developed in no apparent distress
HEENT-atraumatic, normocephalic
Neck-supple, no JVD, no bruit
Heart-regular rate and rhythm-no murmurs, rubs or gallops, no increased P2 or RV heave
Chest-clear to auscultation, no wheezes, crackles
Back-no tenderness
Abdomen-soft, nontender, nondistended, no hepatosplenomegaly
Extremities-no cyanosis, clubbing, edema and good peripheral pulses
Integument-intact, no rashes, lesions or ecchymosis
Neurology-alert and oriented, nonfocal motor and sensory exam
Assessment
-
63-year-old female patient with history of underlying hypertension, hyperlipidemia, depression, nephrolithiasis, transverse myelitis, avascular necrosis, osteoporosis, endometriosis and suspected metastatic ovarian cancer currently being worked up
by [facility] with recent right pleural fluid analysis consistent with malignant ovarian cells and she presents with increasing shortness of breath found to have a pulmonary embolism-pulmonary consulted for pulmonary embolism 06/08/2024.
Pulmonary embolism-provoked likely due to underlying malignancy
[id number] III high risk
Left upper extremity cephalic vein acute thrombosis
DVT-acute right posterior tibial and peroneal veins
Leukocytosis
Mild hyponatremia
Hyperglycemia
Transaminitis
Conditions present prior to admission:
Hypertension.
Hyperlipidemia.
Depression.
Nephrolithiasis.
Transverse myelitis.
Avascular necrosis.
Osteoporosis.
Eczema.
Endometriosis.
Ovarian cancer stage IV with pleural [id number] currently underway
Plan
Patient will be admitted to telemetry
Supplemental oxygen as needed
Aspiration precautions
Incentive spirometry
CT chest personally reviewed
Check echocardiogram
Check lower extremity ultrasound
Full PESI and sPESI summarized above
Heparin drip or Lovenox 1 mg/kg every 12 hours
Benefits and risks of thrombolytics therapy were reviewed with patient
Thrombolytics-risks outweigh benefits
Bedrest �24 hours
DVT prophylaxis-on full anticoagulation
Early nutrition
Early mobilization
Outpatient pulmonary follow-up
Diagnostic data:
Chest x-ray 05/12/2024-NAD, mild bilateral lung hyperinflation
CT chest 06/07/2024-acute pulm embolism right upper lobe and lower right lower lobe, no evidence for right heart strain, small to moderate-sized subpleural airspace consolidation right lower lobe could be infarct or pneumonia
Lower extremity ultrasound 06/07/2024-acute occlusive thrombosis left cephalic vein
Lower extremity ultrasound 06/08/2024-acute occlusive below the knee DVT right posterior tibial and peroneal veins
Data Reviewed
-
EKG: Report reviewed by me
Radiology: Image personally visualized and interpreted and Report reviewed by me
CT Scan: Image personally visualized and interpreted and Report reviewed by me
Ultrasound: Report reviewed by me
Labs: Labs reviewed by me
Old Records: Reviewed
Total Time Spent with Patient (in minutes): 65
--- NOTE | 2024-06-08 14:27 | VNURNOTE ---
Chart reviewed.� Patient is current with [facility] nursing.� Will continue to follow hospital course and DC plans.
[2024-06-08 14:50] LABS: APTT > 200.0 Sec (23.4-35.0)
--- NOTE | 2024-06-08 15:16 | CM ---
manager search engine reviewed patient's chart and met with patient and patient lives with her spouse in a 2 story home, patient is independent with adl's and ambulation, no dme, patient drives, patient is current with [facility].
PCP: Carmita Mcmanus
Pharmacy; [facility].
Plan; Home with [facility].
[2024-06-08] MEDS: ELIQUIS 10 MG PO (20:15)
[2024-06-08] MEDS: TUMS CHEWABLE TABLET 400 MG PO (22:24)
[2024-06-09 03:17] VITALS: BP 144/78
[2024-06-09 07:20] VITALS: BP 122/85
[2024-06-09 08:18] LABS: Blood Urea Nitrogen 41 mg/dl (7-17); Calcium 9.5 mg/dl (8.4-10.2); Carbon Dioxide 24 mmol/L (22-30); Chloride 96 mmol/L (98-107); Estimated Creatinine Clearance 77 ml/min; Glucose 129 mg/dl (70-99); Sodium 132 mmol/L (135-145); eGFR > 60.00
--- NOTE | 2024-06-09 08:22 | W.PN.HOSP.TC ---
Addendum entered and electronically signed by Emmy Cha MD 06/09/24 13:52:
total DC time 39 min
Original Note:
Today's Communication/Plan
-
see A/P
DC if Hgb stable
Assessment / Plan
Assessment / Plan
63-year-old female with recent diagnosis of necrotizing myositis, malignant pleural effusion, incidental right upper/lower lobe PE found on CT scan at [place]; who was advised to come in due to PE finding. She c/o several weeks of shortness of breath
associated with back pain.
Assessment/plan:
# Unprovoked acute nonmassive PE with R DVT posterior tibial and peroneal veins.
negative RV strain on CT, hence do not feels strongly about getting echo, which would not change treatment plan anyway.
Hypercoagulable state suspect secondary to stage IV ovarian cancer (see below).
CT scan from [facility] also reported rectus sheath hematoma.
s/p heparin drip, transitioned to Eliquis 10 mg BID for 7 days then 5 mg BID indefinitely until further directed
appreciate Pulmonology input
# Recent diagnosis of malignant pleural effusion with ovarian cells.
Workup with [facility], CT AP at [place], Onc [facility] eval at [place] pending.
# Leukocytosis, Secondary to steroids.
# Hyponatremia, mild
Sodium level 132 today
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
Hep C Ag serology negative.
Denies alcohol use.
Continue to monitor.
# Essential hypertension
Continue amlodipine.
# Hyperlipidemia
Continue Zetia
# Anxiety/depression
Continue Lexapro, Lamictal.
DVT PPx�Eliquis
CODE STATUS: Full code
DW RN
Anticipated Discharge: Today
Subjective/Interval History
-
Date of Service: June 09, 2024
Objective Data
-
Labs:
Laboratory Results
06/09/24
07:07
WBC Pending
Hgb Pending
Hct Pending
Plt Count Pending
Sodium 132 L
Potassium 5.0
Chloride 96 L
Carbon Dioxide 24
BUN 41 H
Creatinine 0.6
Glucose 129 H
Calcium 9.5
Vital Signs:
Vital Signs
Temp Pulse Resp BP Pulse Ox
36.5 C 97 16 144/78 94
06/09/24 03:17 06/09/24 03:17 06/09/24 03:17 06/09/24 03:17 06/09/24 03:17
I&O
06/08/24 06/09/24 06/10/24
06:59 06:59 06:59
Intake Total 480 / 480
Balance 480 / 480
Review of Systems
-
All other systems: Reviewed and negative
Physical Exam
-
General: Well Developed, Well Nourished, No Apparent Distress, Comfortable and Conversant
HEENT: Normocephalic, Atraumatic and PERRLA
Respiratory: Clear to Auscultation and Non Labored Respirations; Negative Wheezes or Accessory Resp Muscle Use
Cardiac: Regular Rhythm and S1/S2
GI: Soft and Nontender
Musculoskeletal: No Edema
Skin: Warm, Dry and Other (Bruising on anterior abdomen)
Neuro: Awake and Alert
Psych: Calm and Intact Judgement/Insight
Data Reviewed
-
CT Scan: Report Reviewed by me
Labs: Labs Reviewed by me
[2024-06-09] MEDS: ELIQUIS 10 MG PO (08:38)
[2024-06-09] MEDS: ZETIA 10 MG PO (08:40)
[2024-06-09] MEDS: DELTASONE 30 MG PO (08:41)
[2024-06-09] MEDS: OSCAL CAL 500 500 MG PO (08:41)
[2024-06-09] MEDS: LEXAPRO 10 MG PO (08:41)
[2024-06-09] MEDS: NORVASC 5 MG PO (08:42)
[2024-06-09] MEDS: LAMICTAL 100 MG PO (08:42)
[2024-06-09] MEDS: VITAMIN D3 (cholecalciferol) 25 MCG PO (08:42)
--- NOTE | 2024-06-09 09:38 | W.PN.PUL3 ---
Today's Communication / Plan
-
NOAC
Up OOB as tolerated
Encourage incentive spirometer
Outpatient follow-up with our office for full PFTs
Outpatient hematology consultation for hypercoagulable workup
Patient being prepared for discharge home. No additional pulmonary recommendations at this time - Pulmonary service will now sign off. Please reconsult if there are any additional questions/concerns, or if patient's respiratory status deteriorates.
Assessment
-
63-year-old female patient with history of underlying hypertension, hyperlipidemia, depression, nephrolithiasis, transverse myelitis, avascular necrosis, osteoporosis, endometriosis and suspected metastatic ovarian cancer currently being worked up
by [facility] with recent right pleural fluid analysis consistent with malignant ovarian cells and she presents with increasing shortness of breath found to have a pulmonary embolism-pulmonary consulted for pulmonary embolism 06/08/2024.
Impression:
Pulmonary embolism-provoked likely due to underlying malignancy
[id number] III high risk
Acute distal RLE DVT involving the posterior tibial + peroneal veins
Left upper extremity cephalic vein acute thrombosis
DVT-acute right posterior tibial and peroneal veins
Leukocytosis
Mild hyponatremia
Hyperglycemia - improved
Transaminitis
Conditions present prior to admission:
Hypertension.
Hyperlipidemia.
Depression.
Nephrolithiasis.
Transverse myelitis.
Avascular necrosis.
Osteoporosis.
Eczema.
Endometriosis.
Ovarian cancer stage IV with pleural [id number] currently underway
Plan
Patient admitted to telemetry
Supplemental oxygen as needed to keep SpO2 >90-94%
Aspiration precautions
Incentive spirometry encouraged 10x per hour for at least 4 hrs a day
CT chest personally reviewed
Check echocardiogram
Check lower extremity ultrasound - showed acute right LE DVT in the PT + peroneal veins
Full PESI and sPESI summarized above
Heparin drip --> now transitioned to loading dose of Eliquis
Benefits and risks of thrombolytics therapy were reviewed with patient
Thrombolytics-risks outweigh benefits
Bedrest �24 hours --> now ok to get up OOB
DVT prophylaxis- NOAC
Early nutrition
Early mobilization
Outpatient pulmonary follow-up
Patient being prepared for discharge home. No additional pulmonary recommendations at this time - Pulmonary service will now sign off. Thank you for allowing us to be involved in the care of this patient. Please reconsult if there are any
additional questions/concerns, or if patient's respiratory status deteriorates.
Diagnostic data:
Chest x-ray 05/12/2024-NAD, mild bilateral lung hyperinflation
CT chest 06/07/2024-acute pulm embolism right upper lobe and lower right lower lobe, no evidence for right heart strain, small to moderate-sized subpleural airspace consolidation right lower lobe could be infarct or pneumonia
Lower extremity ultrasound 06/07/2024-acute occlusive thrombosis left cephalic vein
Lower extremity ultrasound 06/08/2024-acute occlusive below the knee DVT right posterior tibial and peroneal veins
Total time spent today was 26 minutes for this encounter. Time includes reviewing laboratory test/imaging results, reviewing pertinent medical records, obtaining and reviewing medical history, performing an appropriate exam, ordering medications,
tests and procedures. Time also includes documentation of this encounter, coordinating patient care and communicating with other healthcare professionals. Total time does not include separately billed tests performed on this date of service.
Subjective Data
-
Date of Service:
Date of Service: June 09, 2024
Chief Complaint: Pulmonary Follow Up
Subjective:
Seen and evaluated today at bedside. No acute events reported from overnight. She denies chest pain, VELAZQUEZ, nausea, vomiting, fevers or chills.
Review of Systems
General: Other (Negative unless mentioned above)
Objective Data
Data Reviewed
Vital Signs / I&O / Oxygen:
Vital Signs
Temp Pulse Resp BP Pulse Ox
98.5 F 105 16 131/88 97
06/09/24 11:20 06/09/24 11:20 06/09/24 11:20 06/09/24 11:20 06/09/24 11:20
Intake and Output
06/08/24 06/09/24 06/10/24
06:59 06:59 06:59
Intake Total 480 / 480 240 / 240
Balance 480 / 480 240 / 240
SaO2 97
Physical Exam
General: Respiratory Distress (negative), Comfortable, Chills (negative) and Sweats (negative)
HEENT: Normocephalic and Anicteric
Cardiovascular: S1-S2 and Peripheral Edema (negative)
Respiratory: Clear, Wheeze (negative), Crackles (negative), Rhonchi (negative) and Non-Labored Respirations
GI: Soft, Non Distended, Non Tender and Normal Bowel Sounds
Neurology: Awake, Alert and Tremors (negative)
Skin: Warm, Dry, Cyanosis (negative) and Jaundice (negative)
Labs/Micro/Reports
Lab Data
06/09/24 07:07
06/09/24 07:07
--- NOTE | 2024-06-09 10:05 | CM ---
Home today with [facility]
Plan; Home with [facility]
[2024-06-09] MEDS: MOTRIN 600 MG PO (11:06)
[2024-06-09 11:20] VITALS: BP 131/88
--- NOTE | 2024-06-09 13:41 | W.DCSUMMARY ---
Discharge Summary
Discharge Data
Date of Admission: 06/07/24
Date of Discharge: 06/09/24
-
Pending Results: No
Hospital Course
Principal Diagnosis:
Unprovoked acute nonmassive pulmonary embolism (PE) with Right given thrombosis (DVT) in posterior tibial and peroneal veins.
Chronic Diagnoses:�
Recent diagnosis of necrotizing myositis
Recent diagnosis of malignant pleural effusion with ovarian cells.
Chronic transaminitis, suspect from recent necrotizing myositis
Essential hypertension on amlodipine.
Hyperlipidemia
Anxiety/depression, on Lexapro, Lamictal.
Consultations:�
Pulmonary
Procedures:�
None
Clinical course:�
This is a 63-year-old female with past medical history as stated above, who presented to the emergency room due to incidental finding of pulmonary embolism from outpatient imaging.
She noted shortness of breath for several weeks.
Problem 1:
Unprovoked acute nonmassive PE with R DVT posterior tibial and peroneal veins.
Her CT scan was negative for right heart strain.
She was started with heparin drip and was discharged with Eliquis 10 mg twice daily for 7 days, then 5 mg twice daily going forward.
She is aware to follow-up with outpatient oncology for recent diagnosis of likely metastatic ovarian cancer.
As for the rest of her medical problems, they were stable during her hospital stay.
Discharge Plan
-
Patient Disposition: Home (Routine Discharge)
Discharge Diagnosis/Procedures: Unprovoked acute non-massive pulmonary embolism with right leg DVT (right posterior tibial and peroneal veins);
malignant pleural effusion with likely metastatic ovarian cancer
Condition: Fair
Diet: As tolerated
Activity: As tolerated
Driving Restrictions: Not until seen by your Dr
Referrals:
Carmita Mcmanus MD [Family Provider] - in less than 1 week
Leandro Garcia MD [Active] - in six weeks
(Dr. Garcia nurse practitioner.
PFTs)
Additional Discharge Medication Instructions: Continue Eliquis 10 mg twice daily for 6 more days, then 5 mg twice daily indefinitely until further directed by your doctor
Prescriptions:
New
Eliquis 5 mg tablet
5 mg PO BID Qty: 240 0RF
Rx Instructions:
10 mg BID for 6 days then 5 mg BID afterward
Continued
lamotrigine 100 MG tablet
100 mg PO DAILY
escitalopram oxalate 10 MG tablet
10 mg PO DAILY
prednisone 10 mg Tablet
30 mg PO BID
amlodipine 5 mg Tablet
5 mg PO DAILY
calcium carbonate 500 mg calcium (1,250 mg) Tablet
500 mg PO DAILY
ibuprofen [Advil] 200 mg Tablet
600 mg PO Q6HPRN PRN (Reason: mild pain)
ezetimibe 10 mg Tablet
10 mg PO DAILY
cholecalciferol (vitamin D3) [Vitamin D3] 25 mcg (1,000 unit) Tablet
25 mcg PO DAILY
Discharge Orders:
Discharge Patient (As Directed); Ordered 06/09/24
Ordered By: Emmy Cha
Discharge Date and Time
Discharge Date/Time: 06/09/24 13:09
Print Language: ROMANIAN
[2024-06-09 14:59] LABS: Hematocrit 41.2 % (37.0-47.0); Hemoglobin 13.2 g/dL (12.0-16.0); Mean Corpuscular Hgb 31.1 pg (27.0-31.0); Mean Corpuscular Volume 96.9 fL (81.0-99.0); Mean Platelet Volume 10.6 fL (7.4-10.4); Platelet Count 259 10^3/uL (130-400); Red Blood Cell Count 4.25 10^6/uL (4.20-5.40); Red Cell Dist. Width 14.1 % (11.5-14.5); White Blood Cell Count 26.7 10^3/uL (4.8-10.8)
== END 2024-06-09 13:09 | disposition home health service (06) | DRG 176 ==
LOC: 4 WEST ACU 22:09
PROVIDERS: Clinical Nurse Specialist Family Health; Student in an Organized Health Care Education/Training Program; ADMITTING PHYSICIAN Hospitalist; ATTENDING PHYSICIAN Internal Medicine; EMERGENCY PHYSICIAN Emergency Medicine; FAMILY PHYSICIAN Emergency Medicine; OTHER PHYSICIAN Internal Medicine Critical Care Medicine
DX: I26.99 Other pulmonary embolism without acute cor pulmonale (principal); I82.612 Acute embolism and thrombosis of superficial veins of left upper extremity; C56.9 Malignant neoplasm of unspecified ovary; C78.2 Secondary malignant neoplasm of pleura; E87.1 Hypo-osmolality and hyponatremia; I82.441 Acute embolism and thrombosis of right tibial vein; I82.451 Acute embolism and thrombosis of right peroneal vein; J91.0 Malignant pleural effusion; E78.5 Hyperlipidemia, unspecified; I10 Essential (primary) hypertension; F32.A Depression, unspecified; M81.0 Age-related osteoporosis without current pathological fracture; M60.822 Other myositis, left upper arm; M60.821 Other myositis, right upper arm; D72.828 Other elevated white blood cell count; T38.0X5A Adverse effect of glucocorticoids and synthetic analogues, initial encounter; F41.9 Anxiety disorder, unspecified; R73.9 Hyperglycemia, unspecified; Z88.5 Allergy status to narcotic agent; Z88.0 Allergy status to penicillin; Z79.899 Other long term (current) drug therapy
CPT/HCPCS: 71275; 80048; 80053; 83880; 84484; 85025; 85027; 85379; 85610; 85730; 93005; 93970; 93971; 96361; 96374; 99285; Q9967